=== PATIENT | female | born 1985 | race Caucasian/White ===

== ENCOUNTER 2016-12-08 17:21 | Emergency (ER) | payer SELFPAY ==
[~2016-12-08] VITALS: Ht 170.2 cm; Wt 96.0 kg
[~2016-12-08 17:21] MED LIST: ALBUAER2 INH; CHOL100010 PO; CYAN500T13 PO; TRAZ150T64 PO
[2016-12-08 17:24] VITALS: BP 152/92; PULSE 72; TEMP 36.3; O2SAT 98; Ht 170.2 cm; Wt 96.0 kg
--- NOTE | 2016-12-08 17:49 | DIAGNOSTIC IMAGING REPORT ---
C-SPINE ROUTINE 4 OR 5 VIEWS CLINICAL HISTORY: Neck pain COMPARISON STUDY: 11/28/2014 FINDINGS: There is straightening of the normal cervical lordosis. No fractures or subluxations are visualized. The prevertebral soft tissues are normal. The bony neural foramen are patent bilaterally. IMPRESSION: Straightening of the normal cervical lordosis. Otherwise normal conventional radiographic evaluation of the cervical spine. Electronically signed by: Brendan Fuller M.D. 12/08/2016 5:48 PM Dictated Date/Time: 12/08/2016 5:47 PM
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
[2017-01-15] MEDS ORDERED: EPP3/2 IM (00:41)
[2017-01-15] MEDS ORDERED: PRVHFAIN INH (18:12)
[2017-01-15] MEDS ORDERED: DSY/150 PO (18:12)
== END 2016-12-08 18:13 | disposition home or self-care (01) ==
LOC: C.EDB 17:21 → C.EDD 18:13
DX: S16.1XXA Strain of muscle, fascia and tendon at neck level, initial encounter (principal); F17.200 Nicotine dependence, unspecified, uncomplicated; V43.54XA Car driver injured in collision with van in traffic accident, initial encounter; J45.909 Unspecified asthma, uncomplicated; Z87.01 Personal history of pneumonia (recurrent); Z83.3 Family history of diabetes mellitus; Z84.1 Family history of disorders of kidney and ureter

== ENCOUNTER 2017-01-15 19:28 | Emergency (ER) | payer SELFPAY ==
[~2017-01-15] VITALS: Ht 170.2 cm; Wt 94.2 kg
[~2017-01-15 19:28] MED LIST changes: -ALBUAER2 INH; -CHOL100010 PO; -CYAN500T13 PO; +DSY/150 PO; +EPP3/2 IM; +PRVHFAIN INH; -TRAZ150T64 PO
[2017-01-15 19:36] VITALS: TEMP 36.4; Ht 170.2 cm; Wt 94.2 kg
[2017-01-15] MEDS ORDERED: ONDANSETRON INJ 2 MG/ML 2 ML VIAL IV STA (19:52)
[2017-01-15] MEDS ORDERED: MoRPHine SULFATE 4 MG/ML 1 ML CARP\\VIAL IV STA (19:52)
[2017-01-15] MEDS ORDERED: SODIUM CHLORIDE 0.9% 1000ML 1,000 ML IV STA (19:52)
[2017-01-15] MEDS ORDERED: OPTIRAY 320 IV PRN (20:00)
[2017-01-15 20:04] LABS: URINE APPEARANCE CLEAR (CLEAR); URINE BILIRUBIN NEG (NEG); URINE COLOR YELLOW; URINE NITRITE NEG (NEG); URINE PH 6.5 (4.5-7.5); URINE SPECIFIC GRAVITY 1.014 (1.000-1.030); UROBILINOGEN NEG (NEG); ZZUR CULT IF INDIC CLEAN CATCH NO
[2017-01-15 20:14] LABS: MANUAL MICROSCOPIC REQUIRED? NO; REVIEW REQ? NO
[2017-01-15 20:22] LABS: BASO % 0.8 %; BASO ABS # 0.07 K/uL (0-0.2); COMPLETE YES; EOS % 2.3 %; HEMATOCRIT 44.9 % (37-47); IG% 0.2 %; LYMPH % 30.2 %; LYMPH ABS # 2.73 K/uL (1.2-3.4); MEAN CELL VOLUME 93.9 fL (80-100); MEAN CORPUSCULAR HEMOGLOBIN 32.2 pg (25-34); MEAN CORPUSCULAR HGB CONC 34.3 g/dl (32-36); MEAN PLATELET VOLUME 10.5 fL (7.4-10.4); MONO % 9.2 %; NEUT % 57.3 %; PLATELET COUNT 367 K/uL (130-400); RED BLOOD COUNT 4.78 M/uL (4.2-5.4); WHITE BLOOD COUNT 9.04 K/uL (4.8-10.8)
[2017-01-15] MEDS ORDERED: PROP120C PO (20:29)
[2017-01-15] MEDS ORDERED: METH750T PO (20:39)
[2017-01-15] MEDS ORDERED: TOPI25TA10 PO (20:40)
[2017-01-15 20:44] LABS: BUN/CREATININE RATIO 14.9 (10-20); CALCIUM 9.5 mg/dl (8.5-10.1); CREATININE 0.84 mg/dl (0.60-1.20); POTASSIUM 3.9 mmol/L (3.5-5.1)
[2017-01-15 20:47] LABS: ALB/GLOB RATIO 0.8 (0.9-2)
[2017-01-15] MEDS ORDERED: ZNTT/150 PO (20:59)
--- NOTE | 2017-01-15 21:16 | DIAGNOSTIC IMAGING REPORT ---
ABDOMEN AND PELVIS CT WITH IV CONTRAST CT DOSE: 946.68 mGy.cm HISTORY: Left flank pain left sided abdominal pain TECHNIQUE: Multiaxial CT images of the abdomen and pelvis were performed following the use of intravenous contrast. COMPARISON STUDY: 04/20/2014 FINDINGS: Lung bases are clear. Liver spleen and pancreas are unremarkable. Patient is an interval cholecystectomy. No evidence for an obstructing urinary tract calculus. Bowel pattern is considered nonobstructive throughout. Appendix is unremarkable. Bladder is midline. No free fluid within the pelvic cul-de-sac. IMPRESSION: No significant abnormality identified within the abdomen or pelvis. Prior cholecystectomy. Electronically signed by: Tito Marie M.D. 01/15/2017 9:15 PM Dictated Date/Time: 01/15/2017 9:10 PM
--- NOTE | 2017-01-15 21:32 | EMERGENCY ROOM VISIT NOTE ---
History First contact with patient: 19:37 Chief Complaint: FLANK PAIN Stated Complaint: SEVERE PAIN IN LEFT SIDE History of Present Illness The patient is a 31 year old female who presents to the Emergency Room with complaints of left-sided abdominal pain which began approximately 4 hours ago. The patient states that initially, the pain felt crampy. The pain has worsened and is now a sharp, stabbing pain. She rates the discomfort a 7/10. The pain is worse with movement and with walking. She has had ovarian cysts before, but is unsure if this feels similar are not. She denies any associated urinary symptoms, fevers, vaginal discharge, vomiting, changes in bowel movements, chest pain or shortness of breath. She does report some nausea, but no vomiting. She has not taken any medication at home for her symptoms. Review of Systems A complete 10-point Review of Systems was discussed with the patient, with pertinent positives and negatives listed in the History of Present Illness. All remaining Review of Systems questions can be considered negative unless otherwise specified. Past Medical/Surgical History Medical Problems: (1) Asthma, Unspecified (2) NONSPECIF SKIN ERUPT NEC (3) NONTOX UNINODULAR GOITER (4) Personal History, Pneumonia (Recurrent) (5) Tendon release, left wrist Family History Cancer Diabetes mellitus Gallbladder disease Heart disease Hypertension Kidney disease Kidney stones Lung disease Social History Smoking Status: Current Every Day Smoker Alcohol Use: none Drug Use: none Marital Status: single Housing Status: lives with family Occupation Status: employed Current/Historical Medications Scheduled Propranolol Hcl (Propranolol Hcl Er), 120 MG PO DAILY Ranitidine (Zantac), 150 MG PO BID Topiramate (Topamax), 25 MG PO BID Scheduled PRN Albuterol (Ventolin Hfa), 2 PUFFS INH QID PRN for Asthma Symptoms Epinephrine (Epipen), 0.3 MG IM UD PRN for ALLERGIC REACTION Methocarbamol (Robaxin), 750 MG PO BID PRN for Muscle Spasm Trazodone HCl (Trazodone HCl), 150 MG PO HS PRN for Sleep Allergies Coded Allergies: Cephalosporins (Verified Allergy, Intermediate, HIVES FROM ROCEPHIN IM, ) Ibuprofen (Unverified Allergy, Intermediate, HIVES, 04/01/16) Lidocaine (Verified Allergy, Intermediate, HIVES FROM LIDOCAINE IM, ) Tramadol (Verified Allergy, Intermediate, RASH, 04/01/16) Adhesives (Verified Allergy, Mild, RASH, 04/01/16) Loratadine (Verified Allergy, Mild, 04/01/16) Naproxen (Verified Allergy, Mild, 04/01/16) Propoxyphene (Verified Allergy, Mild, RASH, BUT TAKES DARVON, 04/01/16) Hydrocodone (Verified Allergy, Unknown, ., 04/01/16) Prednisone (Verified Allergy, Unknown, FACIAL SWELLING, 04/01/16) Sulfa Drugs (Verified Allergy, Unknown, ., 04/01/16) Sulfamethoxazole (Verified Allergy, Unknown, ., 04/01/16) Trimethoprim (Verified Allergy, Unknown, ., 04/01/16) Physical Exam Vital Signs Date Time Temp Pulse Resp B/P Pulse Ox O2 Delivery O2 Flow Rate FiO2 01/15/17 21:44 68 18 124/88 98 01/15/17 21:09 61 16 120/71 Room Air 01/15/17 19:36 36.4 70 16 140/86 100 Room Air Physical Exam VITALS: Vitals are noted on the nurse's note and reviewed by myself. Vital signs stable. GENERAL: This is a 31-year-old female, in no acute distress, nondiaphoretic, well-developed well-nourished. SKIN: Capillary reflex less than 2 seconds. HEENT: Normocephalic. PERRLA. EOMI. Nares patent. Mucous membranes moist. Neck is supple without nuchal rigidity. HEART: Regular rate and rhythm without murmurs gallops or rubs. LUNGS: Clear to auscultation bilaterally without wheezes, rales or rhonchi. ABDOMEN: Positive bowel sounds x 4. Soft, with moderate tenderness of the left mid abdomen and left lower quadrant. No guarding or rebound tenderness. NEURO: Patient was alert and oriented to person place and time. Medical Decision & Procedures ER Provider Diagnostic Interpretation: ABDOMEN AND PELVIS CT WITH IV CONTRAST No evidence for an obstructing urinary tract calculus. Bowel pattern is considered nonobstructive throughout. Appendix is unremarkable. Bladder is midline. No free fluid within the pelvic cul-de-sac. IMPRESSION: No significant abnormality identified within the abdomen or pelvis. Prior cholecystectomy. Laboratory Results 01/15/17 20:05 Red Blood Count 4.78, Mean Corpuscular Volume 93.9, Mean Corpuscular Hemoglobin 32.2, Mean Corpuscular Hemoglobin Concent 34.3, Mean Platelet Volume 10.5, Neutrophils (%) (Auto) 57.3, Lymphocytes (%) (Auto) 30.2, Monocytes (%) (Auto) 9.2, Eosinophils (%) (Auto) 2.3, Basophils (%) (Auto) 0.8, Neutrophils # (Auto) 5.18, Lymphocytes # (Auto) 2.73, Monocytes # (Auto) 0.83, Eosinophils # (Auto) 0.21, Basophils # (Auto) 0.07 01/15/17 20:05 Test 01/15/17 19:45 01/15/17 20:05 Urine Color YELLOW Urine Appearance CLEAR (CLEAR) Urine pH 6.5 (4.5-7.5) Urine Specific [place] 1.014 (1.000-1.030) Urine Protein NEG (NEG) Urine Glucose (UA) NEG (NEG) Urine Ketones NEG (NEG) Urine Occult Blood NEG (NEG) Urine Nitrite NEG (NEG) Urine Bilirubin NEG (NEG) Urine Urobilinogen NEG (NEG) Urine Leukocyte Esterase NEG (NEG) Urine Test NEG (NEG) White Blood Count 9.04 K/uL (4.8-10.8) Red Blood Count 4.78 M/uL (4.2-5.4) Hemoglobin 15.4 g/dL (12.0-16.0) Hematocrit 44.9 % (37-47) Mean Corpuscular Volume 93.9 fL (80-100) Mean Corpuscular Hemoglobin 32.2 pg (25-34) Mean Corpuscular Hemoglobin Concent 34.3 g/dl (32-36) Platelet Count 367 K/uL (130-400) Mean Platelet Volume 10.5 fL (7.4-10.4) Neutrophils (%) (Auto) 57.3 % Lymphocytes (%) (Auto) 30.2 % Monocytes (%) (Auto) 9.2 % Eosinophils (%) (Auto) 2.3 % Basophils (%) (Auto) 0.8 % Neutrophils # (Auto) 5.18 K/uL (1.4-6.5) Lymphocytes # (Auto) 2.73 K/uL (1.2-3.4) Monocytes # (Auto) 0.83 K/uL (0.11-0.59) Eosinophils # (Auto) 0.21 K/uL (0-0.5) Basophils # (Auto) 0.07 K/uL (0-0.2) RDW Standard Deviation 44.6 fL (36.4-46.3) RDW Coefficient of Variation 12.9 % (11.5-14.5) Immature Granulocyte % (Auto) 0.2 % Immature Granulocyte # (Auto) 0.02 K/uL (0.00-0.02) Anion Gap 12.0 mmol/L (3-11) Est Creatinine Clear Calc Drug Dose 112.3 ml/min Estimated GFR () 105.8 Estimated GFR (Non- 91.3 BUN/Creatinine Ratio 14.9 (10-20) Calcium Level 9.5 mg/dl (8.5-10.1) Total Bilirubin 0.2 mg/dl (0.2-1) Aspartate Amino Transf (AST/SGOT) 10 U/L (15-37) Alanine Aminotransferase (ALT/SGPT) 17 U/L (12-78) Alkaline Phosphatase 100 U/L (45-117) Total Protein 8.1 gm/dl (6.4-8.2) Albumin 3.6 gm/dl (3.4-5.0) Globulin 4.5 gm/dl (2.5-4.0) Albumin/Globulin Ratio 0.8 (0.9-2) Lipase 166 U/L (73-393) Medications Administered Medications (Trade) Dose Ordered Sig/Kimmie Route Start Time Stop Time Status Last Admin Dose Admin Sodium Chloride (Nss 1000ml) 1,000 ml @ 999 mls/hr Q1H1M STAT IV 01/15/17 19:52 01/15/17 20:52 DC 01/15/17 20:08 999 MLS/HR Morphine Sulfate (MoRPHine SULFATE INJ) 4 mg NOW STAT IV 01/15/17 19:52 01/15/17 19:56 DC 01/15/17 20:08 4 MG Ondansetron HCl (Zofran Inj) 4 mg NOW STAT IV 01/15/17 19:52 01/15/17 19:57 DC 01/15/17 20:08 4 MG Medical Decision Differential diagnosis includes diverticulitis, cystitis, pyelonephritis, gastroenteritis, colitis, renal calculus, ovarian cyst, ovarian torsion, among others. The patient was evaluated as above. Labs were drawn and IV access was obtained. Imaging studies were performed and read by radiology as above. The patient was medicated with 1 L normal saline solution, 4 mg morphine IV and 4 mg Zofran IV. The patient was reassessed multiple times during their stay in the emergency department and remained in stable condition. The patient is a 31-year-old female who presents today complaining of left- sided abdominal pain. Labs revealed no leukocytosis, anemia or concerning electrolyte abnormalities. Urinalysis was not suggestive of infection. Urine was negative. CT of the abdomen and pelvis with IV contrast was performed and showed no acute findings within the abdomen. The patient felt better after IV fluids and pain medication. The etiology of the pain is unknown. The patient was instructed to follow-up closely with her primary care provider and return here for any worsening of her current condition or new/ concerning symptoms. Based on the patient's presentation, lab results, and imaging studies, I feel the patient is stable for outpatient treatment. The patient's case was reviewed with Dr. Jacobsen, ED attending physician, who agreed with my assessment and treatment plan. Discharge instructions were reviewed with the patient. The patient verbalized understanding of my assessment and treatment plan and was discharged home in good condition. Impression Primary Impression: Left lower quadrant pain Departure Information Dispostion Home / Self-Care Condition GOOD Referrals Adalgisa Ortiz M.D. (PCP) Patient Instructions My [facility] Additional Instructions You have been treated in the Emergency Department for your Abdominal Pain. Laboratory results and imaging studies have ruled out any emergent causes for your abdominal pain which would warrant admission or surgery. You state Prilosec, 20 mg daily. This is an zvat-plj-[id number] medication and may help with any stomach issues. For pain control, you can use the following [id number]-[id number] medicines (if >12 yo): - Regular strength (325mg/tab) Tylenol (acetaminophen) 2 tabs every 4-6 hours as needed. Do not exceed 12 tablets in a 24 hour period. Avoid taking more than 4 grams (4000 mg) of Tylenol per day. This includes any other sources of acetaminophen you may take on a regular basis. - Regular strength (200 mg/tab) Advil (ibuprofen) 1-2 tabs every 4-6 hours as needed. Do not exceed a dose of 3200 mg per day. Drink plenty of water and stay well hydrated. As with any trip to the Emergency Department, you should follow-up with your Primary Care Provider from today's visit. Return to the emergency department if your symptoms persist despite treatment plan outlined above or if the following symptoms occur: fevers, chills, worsening nausea/vomiting, blood in your stool or urine.
[2017-01-15 21:44] VITALS: BP 124/88; PULSE 68; O2SAT 98
== END 2017-01-15 21:46 | disposition home or self-care (01) ==
LOC: C.EDB 19:29 → C.EDA 21:46
DX: R10.32 Left lower quadrant pain (principal); J45.909 Unspecified asthma, uncomplicated; F17.200 Nicotine dependence, unspecified, uncomplicated

== ENCOUNTER 2017-02-19 19:36 | Emergency (ER) | payer SELFPAY ==
[~2017-02-19] VITALS: Ht 170.2 cm; Wt 95.7 kg
[~2017-02-19 19:36] MED LIST changes: +METH750T PO; +PROP120C PO; +TOPI25TA10 PO; +ZNTT/150 PO
[2017-02-19 19:48] VITALS: BP 177/114; TEMP 36.8; Ht 170.2 cm; Wt 95.7 kg
[2017-02-19] MEDS ORDERED: ACETAMINOPHEN 500 MG TAB PO STA (20:05)
[2017-02-19] MEDS ORDERED: TOPI50TA16 PO (20:34)
--- NOTE | 2017-02-19 20:38 | DIAGNOSTIC IMAGING REPORT ---
LEFT HAND 3 VIEWS HISTORY: Left ring finger pain. COMPARISON: None. FINDINGS: There is no fracture or dislocation. Soft tissues are unremarkable. No radiopaque foreign bodies. IMPRESSION: No fractures. Electronically signed by: Alexys Doty M.D. 02/19/2017 8:36 PM Dictated Date/Time: 02/19/2017 8:32 PM
[2017-02-19 21:44] VITALS: PULSE 72; O2SAT 99
--- NOTE | 2017-02-20 01:52 | EMERGENCY ROOM VISIT NOTE ---
ED Visit Note First contact with patient: 19:59 Chief Complaint: Left ring finger pain. History of Present Illness: Ms. Rao is a 31-year-old white female who ambulates into the ED accompanied by female friend complaining of left ring finger pain in the area of the PIP joint and proximal phalanx. Patient reports shortly before coming to the ED she was re-straining her to personal dogs because they were fighting. She reports when she had 1 dog by the collar. Tried to attack the other dog and twisted her left index finger. Since that time she reports she has been having severe pain. Currently she describes her pain as a sharp sensation. It is located over the PIP and proximal phalanx. Her pain worsens with flexion at the PIP joint and palpation. She has not identified any alleviating factors related to the pain. She rates her discomfort 8/10. She has not had any medications for pain prior to arrival at the hospital. Associated with her pain she reports a tingling sensation throughout the distal finger. She also denies any previous significant injuries or surgeries to this area. Review of Systems: As noted above in history of present illness. Past Medical History: Asthma, bronchitis, status post cholecystectomy and unspecified wrist surgery. Current Medications: EpiPen, Zantac, Robaxin, propranolol, albuterol, trazodone , Topamax. Allergies to Medications: Cephalosporins, hydrocodone, ibuprofen, lidocaine, naproxen, prednisone, loratadine, Bactrim, tramadol. Social History: Patient is currently employed; she feels safe in her home environment; she admits to tobacco use but denies alcohol use. Physical Examination: Vital Signs: Date Time Temp Pulse Resp B/P Pulse Ox O2 Delivery O2 Flow Rate FiO2 02/19/17 21:44 72 18 99 Room Air 02/19/17 19:48 36.8 74 18 177/114 99 Room Air GENERAL: 31-year-old female in moderate distress due to pain, nontoxic-appearing , afebrile and hemodynamically stable. NEUROLOGICAL: Awake, alert and oriented to person, place and time. Answering questions appropriately and following commands. SKIN: Warm, dry and pink. No soft tissue trauma noted. LEFT HAND: No gross bony deformity. Moderate tenderness over the proximal phalanx in the PIP joint of the ring finger without bony deformity, bony crepitus, swelling or ecchymosis. No tenderness over the MCP, middle phalanx, DIP and distal phalanx. She refused to do range of motion exercises at the MCP and PIP joint area because of pain. Throughout the finger the skin was warm and pink and capillary refill is brisk. She was able to distinguish light sensations through all dermatomes. Should be noted after x-ray I forced her finger at the PIP joint into flexion and she was able to extend the joint with good strength. ED Course: Patient is assessed as noted above. Patient was given 1 g of Tylenol and ice for pain and comfort. Left Hand X-Rays: Were read by myself and the radiologist showing no acute fractures or dislocations. Patient was placed in an metal finger splint. Patient was educated about tonight's findings and instructed on her treatment plan; she verbalized understanding and agreement with this plan. Clinical Impression: Left ring finger pain. Decision-Making: Initially my differential diagnosis I considered dislocation, fracture, tendon strain, contusion and other causes. Disposition: Patient discharged home in stable condition accompanied by female friends; prior to departure she was reassessed and subjectively reported that she was pain-free. Plan: Comfort measures were discussed with the patient including the use of Tylenol, ice and splint use. Patient was encouraged to follow-up with orthopedics if no better in 7-10 days. Patient was encouraged return the ED for worsening pain, uncontrolled swelling, worsening tingling sensations/numbness sensations or any new/concerning symptoms.
== END 2017-02-19 21:45 | disposition home or self-care (01) ==
LOC: C.EDB 19:36 → C.EDD 21:45
DX: M79.645 Pain in left finger(s) (principal); W23.0XXA Caught, crushed, jammed, or pinched between moving objects, initial encounter; Y92.019 Unspecified place in single-family (private) house as the place of occurrence of the external cause; J45.909 Unspecified asthma, uncomplicated; Z79.899 Other long term (current) drug therapy; Z72.0 Tobacco use

== ENCOUNTER 2017-05-27 20:12 | Emergency (ER) | payer SELFPAY ==
[~2017-05-27] VITALS: Ht 170.2 cm; Wt 94.6 kg
[~2017-05-27 20:12] MED LIST changes: -TOPI25TA10 PO; +TOPI50TA16 PO
[2017-05-27 20:23] VITALS: TEMP 36.9; Ht 170.2 cm; Wt 94.6 kg
[2017-05-27] MEDS ORDERED: MoRPHine SULFATE 4 MG/ML 1 ML CARP\\VIAL IV STA (20:37)
[2017-05-27] MEDS ORDERED: ONDANSETRON INJ 2 MG/ML 2 ML VIAL IV STA (20:37)
[2017-05-27 21:11] LABS: BASO % 0.7 %; BASO ABS # 0.07 K/uL (0-0.2); COMPLETE YES; EOS % 2.4 %; HEMATOCRIT 43.8 % (37-47); IG% 0.2 %; LYMPH % 34.4 %; LYMPH ABS # 3.59 K/uL (1.2-3.4); MEAN CELL VOLUME 94.6 fL (80-100); MEAN CORPUSCULAR HEMOGLOBIN 31.5 pg (25-34); MEAN CORPUSCULAR HGB CONC 33.3 g/dl (32-36); NEUT % 51.3 %; PLATELET COUNT 392 K/uL (130-400); RED BLOOD COUNT 4.63 M/uL (4.2-5.4); WHITE BLOOD COUNT 10.44 K/uL (4.8-10.8)
[2017-05-27 21:16] LABS: URINE APPEARANCE CLEAR (CLEAR); URINE BILIRUBIN NEG (NEG); URINE COLOR YELLOW; URINE NITRITE NEG (NEG); URINE SPECIFIC GRAVITY 1.014 (1.000-1.030); UROBILINOGEN NEG (NEG)
[2017-05-27 21:29] LABS: ALT/SGPT 21 U/L (12-78); BLOOD UREA NITROGEN 9 mg/dl (7-18); BUN/CREATININE RATIO 9.4 (10-20); CALCIUM 9.9 mg/dl (8.5-10.1); CARBON DIOXIDE 25 mmol/L (21-32); CHLORIDE 108 mmol/L (98-107); GLUCOSE 66 mg/dl (70-99); POTASSIUM 3.3 mmol/L (3.5-5.1); SODIUM 141 mmol/L (136-145)
[2017-05-27 21:32] LABS: ALKALINE PHOSPHATASE 101 U/L (45-117); AST/SGOT 7 U/L (15-37); MANUAL MICROSCOPIC REQUIRED? NO; REVIEW REQ? NO
[2017-05-27] MEDS ORDERED: TOPI25TA99 PO (21:38)
[2017-05-27] MEDS ORDERED: MAGN400T6 PO (21:40)
[2017-05-27] MEDS ORDERED: [UNRECOGNIZED DRUG - REMARK] PO (21:42)
--- NOTE | 2017-05-27 21:45 | DIAGNOSTIC IMAGING REPORT ---
KUB CLINICAL HISTORY: Abdominal pain. Evaluate for kidney stone. COMPARISON STUDY: CT of the abdomen and pelvis January 15, 2017. FINDINGS: A bone island within the right iliac bone is incidentally noted. Bowel gas pattern is normal. There are cholecystectomy clips. No urinary calculi are identified. Incidental note is made of calcified granulomas within the spleen. IMPRESSION: 1. No urinary calculi identified. 2. No bowel obstruction. Electronically signed by: Carlos Francois M.D. 05/27/2017 9:43 PM Dictated Date/Time: 05/27/2017 9:42 PM
[2017-05-27 21:55] VITALS: BP 106/66; PULSE 56; O2SAT 99
--- NOTE | 2017-05-27 22:03 | EMERGENCY ROOM VISIT NOTE ---
History Report prepared by Jose Angel: Porfirio Morejon Under the Supervision of: Dr. Denzel Rivas M.D. First contact with patient: 20:31 Chief Complaint: FLANK PAIN Stated Complaint: PAIN AROUND KIDNEYS History of Present Illness The patient is a 31 year old female who presents to the Emergency Room with complaints of constant, stabbing, bilateral flank pain beginning a couple days ago. The patient states that she gets nauseous with the pain. The pain started on the left side and migrated to the right earlier today. She denies vomiting, diarrhea, and leg pain. The patient states that she was here in January, and her symptoms are not the same. She reports that there is no chance she is , and her last menstrual period was two weeks ago. Source of History: patient Onset: couple days ago Position: other (Bilateral flank) Quality: stabbing Timing: constant Associated Symptoms: + nausea, + back pain, No vomiting, No diarrhea Note: Denies: leg pain Review of Systems See HPI for pertinent positives & negatives. A total of 10 systems reviewed and were otherwise negative. Past Medical & Surgical Medical Problems: (1) Asthma, Unspecified (2) NONSPECIF SKIN ERUPT NEC (3) NONTOX UNINODULAR GOITER (4) Personal History, Pneumonia (Recurrent) (5) Tendon release, left wrist Family History Cancer Diabetes mellitus Gallbladder disease Heart disease Hypertension Kidney disease Kidney stones Lung disease Social History Smoking Status: Current Every Day Smoker Alcohol Use: none Drug Use: none Marital Status: single Housing Status: lives with family Occupation Status: employed Current/Historical Medications Scheduled Magnesium Oxide (Mag-Ox), 400 MG PO DAILY Propranolol Hcl (Propranolol Hcl Er), 120 MG PO DAILY Ranitidine (Zantac), 150 MG PO BID Topiramate (Topamax), 50 MG PO QPM Topiramate (Topamax ), 25 MG PO QAM [12 Hour Allergy], 1 TAB PO Q12 Scheduled PRN Albuterol (Ventolin Hfa), 2 PUFFS INH QID PRN for Asthma Symptoms Epinephrine (Epipen), 0.3 MG IM UD PRN for ALLERGIC REACTION Methocarbamol (Robaxin), 750 MG PO BID PRN for Muscle Spasm Trazodone HCl (Trazodone HCl), 150 MG PO HS PRN for Sleep Allergies Coded Allergies: Cephalosporins (Verified Allergy, Intermediate, HIVES FROM ROCEPHIN IM, 09/27) Ibuprofen (Unverified Allergy, Intermediate, HIVES, 02/19/17) Lidocaine (Verified Allergy, Intermediate, HIVES FROM LIDOCAINE IM, ) Tramadol (Verified Allergy, Intermediate, RASH, 02/19/17) Adhesives (Verified Allergy, Mild, RASH, 02/19/17) Loratadine (Verified Allergy, Mild, 02/19/17) Naproxen (Verified Allergy, Mild, 02/19/17) Propoxyphene (Verified Allergy, Mild, RASH, BUT TAKES DARVON, 02/19/17) Hydrocodone (Verified Allergy, Unknown, ., 02/19/17) Prednisone (Verified Allergy, Unknown, FACIAL SWELLING, 02/19/17) Sulfa Drugs (Verified Allergy, Unknown, ., 02/19/17) Sulfamethoxazole (Verified Allergy, Unknown, ., 02/19/17) Trimethoprim (Verified Allergy, Unknown, ., 02/19/17) Physical Exam Vital Signs Date Time Temp Pulse Resp B/P (MAP) Pulse Ox O2 Delivery O2 Flow Rate FiO2 05/27/17 21:55 56 18 106/66 99 Room Air 05/27/17 20:23 36.9 60 18 133/84 98 Room Air Physical Exam Constitutional: Vital signs reviewed. Eyes: Pupils are equal round reactive to light. Conjunctiva are noninjected. ENT: Pharynx is clear without erythema or exudate. Mucous membranes are moist. Neck supple without meningeal signs. Respiratory: Clear to auscultation bilaterally. Breath sounds are equal bilaterally. Cardiovascular: Regular rate and rhythm. No rubs or gallops. GI: Soft, nondistended and nontender. Bowel sounds are present. Musculoskeletal: No peripheral edema. Mild left CVA tenderness, no tenderness to the midline lumbar spine. Integumentary: No cyanosis. Neurological: The patient is awake and alert. No focal deficits. Motor and sensation intact in the lower extremities. Psychiatric: Normal affect. Medical Decision & Procedures ER Provider Diagnostic Interpretation: X-ray results as stated below per interpretation by me and the radiologist: BENITEZ CLINICAL HISTORY: Abdominal pain. Evaluate for kidney stone. COMPARISON STUDY: CT of the abdomen and pelvis January 15, 2017. FINDINGS: A bone island within the right iliac bone is incidentally noted. Bowel gas pattern is normal. There are cholecystectomy clips. No urinary calculi are identified. Incidental note is made of calcified granulomas within the spleen. IMPRESSION: 1. No urinary calculi identified. 2. No bowel obstruction. Electronically signed by: Carlos Francois M.D. 05/27/2017 9:43 PM Dictated Date/Time: 05/27/2017 9:42 PM Laboratory Results 05/27/17 20:37 Red Blood Count 4.63, Mean Corpuscular Volume 94.6, Mean Corpuscular Hemoglobin 31.5, Mean Corpuscular Hemoglobin Concent 33.3, Mean Platelet Volume 10.0, Neutrophils (%) (Auto) 51.3, Lymphocytes (%) (Auto) 34.4, Monocytes (%) (Auto) 11.0, Eosinophils (%) (Auto) 2.4, Basophils (%) (Auto) 0.7, Neutrophils # (Auto ) 5.36, Lymphocytes # (Auto) 3.59, Monocytes # (Auto) 1.15, Eosinophils # (Auto ) 0.25, Basophils # (Auto) 0.07 05/27/17 20:37 Test 05/27/17 20:37 White Blood Count 10.44 K/uL (4.8-10.8) Red Blood Count 4.63 M/uL (4.2-5.4) Hemoglobin 14.6 g/dL (12.0-16.0) Hematocrit 43.8 % (37-47) Mean Corpuscular Volume 94.6 fL (80-100) Mean Corpuscular Hemoglobin 31.5 pg (25-34) Mean Corpuscular Hemoglobin Concent 33.3 g/dl (32-36) Platelet Count 392 K/uL (130-400) Mean Platelet Volume 10.0 fL (7.4-10.4) Neutrophils (%) (Auto) 51.3 % Lymphocytes (%) (Auto) 34.4 % Monocytes (%) (Auto) 11.0 % Eosinophils (%) (Auto) 2.4 % Basophils (%) (Auto) 0.7 % Neutrophils # (Auto) 5.36 K/uL (1.4-6.5) Lymphocytes # (Auto) 3.59 K/uL (1.2-3.4) Monocytes # (Auto) 1.15 K/uL (0.11-0.59) Eosinophils # (Auto) 0.25 K/uL (0-0.5) Basophils # (Auto) 0.07 K/uL (0-0.2) RDW Standard Deviation 46.0 fL (36.4-46.3) RDW Coefficient of Variation 13.1 % (11.5-14.5) Immature Granulocyte % (Auto) 0.2 % Immature Granulocyte # (Auto) 0.02 K/uL (0.00-0.02) Urine Color YELLOW Urine Appearance CLEAR (CLEAR) Urine pH 6.0 (4.5-7.5) Urine Specific [place] 1.014 (1.000-1.030) Urine Protein NEG (NEG) Urine Glucose (UA) NEG (NEG) Urine Ketones NEG (NEG) Urine Occult Blood NEG (NEG) Urine Nitrite NEG (NEG) Urine Bilirubin NEG (NEG) Urine Urobilinogen NEG (NEG) Urine Leukocyte Esterase NEG (NEG) Urine Test NEG (NEG) Anion Gap 8.0 mmol/L (3-11) Est Creatinine Clear Calc Drug Dose 94.5 ml/min Estimated GFR () 85.7 Estimated GFR (Non- 74.0 BUN/Creatinine Ratio 9.4 (10-20) Calcium Level 9.9 mg/dl (8.5-10.1) Total Bilirubin 0.3 mg/dl (0.2-1) Direct Bilirubin < 0.1 mg/dl (0-0.2) Aspartate Amino Transf (AST/SGOT) 7 U/L (15-37) Alanine Aminotransferase (ALT/SGPT) 21 U/L (12-78) Alkaline Phosphatase 101 U/L (45-117) Total Protein 8.1 gm/dl (6.4-8.2) Albumin 3.8 gm/dl (3.4-5.0) Lipase 152 U/L (73-393) Laboratory results as reviewed by me. Medications Administered Medications (Trade) Dose Ordered Sig/Kimmie Route Start Time Stop Time Status Last Admin Dose Admin Morphine Sulfate (MoRPHine SULFATE INJ) 4 mg ONE STAT IV 05/27/17 20:37 05/27/17 20:38 DC 05/27/17 20:44 4 MG Ondansetron HCl (Zofran Inj) 4 mg NOW STAT IV 05/27/17 20:37 05/27/17 20:38 DC 05/27/17 20:44 4 MG ED Course 2034: The patient was evaluated in room C05. A complete history and physical exam was performed. 2036: Ordered Zofran Inj 4 mg IV, Morphine Sulfate 4 mg IV 2139: Upon reevaluation, the patient appeared to have improvement of her symptoms. I discussed tonight's findings with her. She verbalized agreement of the treatment plan. She was discharged home. Medical Decision This is a 31-year-old female who presents with bilateral flank pain. Differential diagnosis includes strain, lumbar disc disease, kidney stones, UTI , pyelonephritis, pancreatitis. I did perform a limited focused review of portions of the patient's old chart on the electronic medical record. The patient was seen in January for flank pain and had a remarkable CT scan of the abdomen and pelvis. Medication Reconciliation: I attest that I have personally reviewed the patient' s current medication list. Blood Pressure Screening: Patient was found to have a slightly elevated blood pressure due to circumstances. I do not believe that the patient requires hypertension monitoring. I did evaluate the patient as noted above. IV access was established. I did treat patient with IV morphine and Zofran. I did order and personally review the patient's urinalysis as described above. I did order and review the patient 's blood work as noted in the electronic medical record. Her white blood cell count is not elevated. I did order a KUB x-ray. I did review the images myself as well as the radiology report as described above. I did discuss the test results with the patient. Workup here was unremarkable. The cause of her flank pain is unclear. She was advised follow closely with her doctor for further evaluation and treatment. She was discharged in good condition. Impression Primary Impression: Bilateral flank pain Scribe Attestation The scribe's documentation has been prepared under my direct and personally reviewed by me in its entirety. I confirm that the note above accurately reflects all work, treatment, procedures, and medical decision making performed by me. Departure Information Dispostion Home / Self-Care Referrals Adalgisa Ortiz M.D. Forms HOME CARE DOCUMENTATION FORM, IMPORTANT VISIT INFORMATION Patient Instructions ED Flank Pain Uncertain Cause, My [facility] Additional Instructions You have been examined and treated today on an emergency basis only. This is not a substitute for, or an effort to provide, complete comprehensive medical care. It is impossible to recognize and treat all injuries or illnesses in a single emergency department visit. It is therefore important that you follow up closely with your physician. Call as soon as possible for an appointment. Return for worsening symptoms or if you develop fever, vomiting, or any other concerning symptoms.
== END 2017-05-27 21:56 | disposition home or self-care (01) ==
LOC: C.EDB 20:13 → C.EDC 21:56
DX: R10.9 Unspecified abdominal pain (principal); J45.909 Unspecified asthma, uncomplicated; E04.1 Nontoxic single thyroid nodule; Z87.01 Personal history of pneumonia (recurrent); Z80.9 Family history of malignant neoplasm, unspecified; Z83.3 Family history of diabetes mellitus; Z83.79 Family history of other diseases of the digestive system; Z82.49 Family history of ischemic heart disease and other diseases of the circulatory system; Z84.1 Family history of disorders of kidney and ureter; Z83.6 Family history of other diseases of the respiratory system; F17.210 Nicotine dependence, cigarettes, uncomplicated; Z79.899 Other long term (current) drug therapy

== ENCOUNTER 2017-06-18 20:25 | Emergency (ER) | payer SELFPAY ==
[~2017-06-18] VITALS: Ht 170.2 cm; Wt 86.4 kg
[~2017-06-18 20:25] MED LIST changes: +MAGN400T6 PO; +TOPI25TA99 PO; +[UNRECOGNIZED DRUG - REMARK] PO
[2017-06-18 20:30] VITALS: TEMP 36.5; Ht 170.2 cm; Wt 86.4 kg
--- NOTE | 2017-06-18 20:37 | EMERGENCY ROOM VISIT NOTE ---
History First contact with patient: 20:33 Chief Complaint: FLANK PAIN Stated Complaint: RIGHT SIDE PAIN History of Present Illness The patient is a 31 year old female who presents to the Emergency Room with complaints of RLQ pain since Saturday. Pain was intermittent at first, but now more constant. Described as stabbing, 8/ 10 in intensity. Staying still makes the pain better. Any type of movement makes the pain worse. No relief achieved with change in position. Patient has not tried any analgesia. She has nausea, but no vomiting. No fevers, chills, or sweats. No UTI sx. Last BM earlier today, she has chronic diarrhea. She denies feeling bloated, still passing gas. No excessive burping. She also has chronic back pain. No leg swelling. No CP, SOB (h/o asthma). No changes in meds or recent trauma or travel. No history of confirmed kidney stones - last month, she had an episode of similar pain, and was told that a stone was probably passed. Denies chance of . Did have cholecystectomy 2013 Review of Systems See HPI for pertinent positives and negatives. A total of ten systems were reviewed and were otherwise negative. Past Medical/Surgical History Medical Problems: (1) Asthma, Unspecified (2) NONSPECIF SKIN ERUPT NEC (3) NONTOX UNINODULAR GOITER (4) Personal History, Pneumonia (Recurrent) (5) Tendon release, left wrist Family History Cancer Diabetes mellitus Gallbladder disease Heart disease Hypertension Kidney disease Kidney stones Lung disease Social History Smoking Status: Current Every Day Smoker Alcohol Use: none Drug Use: none Marital Status: single Housing Status: lives with family Occupation Status: employed Current/Historical Medications Scheduled Magnesium Oxide (Mag-Ox), 400 MG PO DAILY Propranolol Hcl (Propranolol Hcl Er), 120 MG PO DAILY Ranitidine (Zantac), 150 MG PO BID Topiramate (Topamax), 50 MG PO QPM Topiramate (Topamax ), 25 MG PO QAM [12 Hour Allergy], 1 TAB PO Q12 Scheduled PRN Albuterol (Ventolin Hfa), 2 PUFFS INH QID PRN for Asthma Symptoms Epinephrine (Epipen), 0.3 MG IM UD PRN for ALLERGIC REACTION Methocarbamol (Robaxin), 750 MG PO BID PRN for Muscle Spasm Trazodone HCl (Trazodone HCl), 150 MG PO HS PRN for Sleep Physical Exam Vital Signs Date Time Temp Pulse Resp B/P (MAP) Pulse Ox O2 Delivery O2 Flow Rate FiO2 06/18/17 22:54 57 20 112/68 98 06/18/17 22:15 54 20 128/78 98 Room Air 06/18/17 21:49 54 20 96/59 97 Room Air 06/18/17 20:30 36.5 66 18 137/87 100 Room Air Physical Exam GENERAL: alert, well appearing, well nourished, sitting in bed, no acute distress, non-toxic HEAD: Normocephalic, atraumatic. No sinus tenderness. EYES: PERRL, EOMI, normal sclera and conjunctiva OROPHARYNX: No exudate, no erythema. Lips, buccal mucosa, and tongue normal and mucous membranes are dry NECK: Supple, no nuchal rigidity, no adenopathy, non-tender LUNGS: Clear to auscultation. Normal chest wall mechanics, good air entry. No crepitations, crackles, or wheezes HEART: RRR, S1 and S2 normal, no murmurs appreciated CHEST: No reproducible tenderness. ABDOMEN: Soft, slight tenderness to palpation of RLQ with mild pain extending laterally, normo-active bowel sounds, no masses, no rebound or guarding. BACK: Back is symmetrical on inspection, no deformities, no midline tenderness, no CVA tenderness. SKIN: Warm, pink, dry. No erythema, rashes, or bruising. EXTREMITIES: Grossly normal. Moving all 4 limbs, strength 5/5. No pitting edema. Calves non tender. NEURO: Alert, Ox3. No focal deficits. Normal sensorium, cranial nerves II-XII grossly intact, normal speech. PSYCH: Mood and affect appropriate. Medical Decision & Procedures ER Provider Diagnostic Interpretation: ABD/PELVIS NO IV OR ORAL CONT HISTORY: 31 years-old Female acute right lower quadrant abdominal pain COMPARISON: CT abdomen and pelvis 01/15/2017 TECHNIQUE: Multiple axial CT images of the abdomen and pelvis were obtained without the use of contrast. A dose lowering technique was used consistent with the principals of YANIRA. FINDINGS: There is minimal subsegmental dependent atelectasis. No pneumoperitoneum identified. Imaged inferior cardiac chambers are unremarkable. Prior cholecystectomy. Scattered calcifications throughout the spleen are consistent with prior hematogenous granulomatous disease. The liver, pancreas and adrenal glands appear normal. Bilateral kidneys, ureters, urinary bladder, uterus and adnexa are unremarkable. The abdominal aorta is normal in course and caliber. No bulky adenopathy. There is no bowel obstruction. Scattered noninflamed sigmoid diverticula are present. The appendix is not definitively seen, however there is no secondary evidence of acute appendicitis. High attenuating material layering within the dependent cecum is again seen, also noted on comparison study. A small appendicolith could have a similar appearance. Soft tissues are within normal limits. Bone islands of the sacrum and pelvis are noted. IMPRESSION: 1. No acute intra-abdominal or intrapelvic abnormality identified. No evidence of acute appendicitis. 2. Prior cholecystectomy. Laboratory Results 06/18/17 20:40 Red Blood Count 4.51, Mean Corpuscular Volume 95.6, Mean Corpuscular Hemoglobin 31.7, Mean Corpuscular Hemoglobin Concent 33.2, Mean Platelet Volume 10.3, Neutrophils (%) (Auto) 50.5, Lymphocytes (%) (Auto) 36.1, Monocytes (%) (Auto) 10.5, Eosinophils (%) (Auto) 2.1, Basophils (%) (Auto) 0.7, Neutrophils # (Auto ) 4.55, Lymphocytes # (Auto) 3.25, Monocytes # (Auto) 0.95, Eosinophils # (Auto ) 0.19, Basophils # (Auto) 0.06 06/18/17 20:40 Test 06/18/17 20:40 06/18/17 21:09 White Blood Count 9.01 K/uL (4.8-10.8) Red Blood Count 4.51 M/uL (4.2-5.4) Hemoglobin 14.3 g/dL (12.0-16.0) Hematocrit 43.1 % (37-47) Mean Corpuscular Volume 95.6 fL (80-100) Mean Corpuscular Hemoglobin 31.7 pg (25-34) Mean Corpuscular Hemoglobin Concent 33.2 g/dl (32-36) Platelet Count 399 K/uL (130-400) Mean Platelet Volume 10.3 fL (7.4-10.4) Neutrophils (%) (Auto) 50.5 % Lymphocytes (%) (Auto) 36.1 % Monocytes (%) (Auto) 10.5 % Eosinophils (%) (Auto) 2.1 % Basophils (%) (Auto) 0.7 % Neutrophils # (Auto) 4.55 K/uL (1.4-6.5) Lymphocytes # (Auto) 3.25 K/uL (1.2-3.4) Monocytes # (Auto) 0.95 K/uL (0.11-0.59) Eosinophils # (Auto) 0.19 K/uL (0-0.5) Basophils # (Auto) 0.06 K/uL (0-0.2) RDW Standard Deviation 45.7 fL (36.4-46.3) RDW Coefficient of Variation 13.1 % (11.5-14.5) Immature Granulocyte % (Auto) 0.1 % Immature Granulocyte # (Auto) 0.01 K/uL (0.00-0.02) Anion Gap 5.0 mmol/L (3-11) Est Creatinine Clear Calc Drug Dose 90.4 ml/min Estimated GFR () 85.7 Estimated GFR (Non- 74.0 BUN/Creatinine Ratio 8.1 (10-20) Calcium Level 9.3 mg/dl (8.5-10.1) Total Bilirubin 0.3 mg/dl (0.2-1) Aspartate Amino Transf (AST/SGOT) 10 U/L (15-37) Alanine Aminotransferase (ALT/SGPT) 26 U/L (12-78) Alkaline Phosphatase 92 U/L (45-117) Total Protein 7.8 gm/dl (6.4-8.2) Albumin 3.6 gm/dl (3.4-5.0) Globulin 4.2 gm/dl (2.5-4.0) Albumin/Globulin Ratio 0.9 (0.9-2) Human Chorionic Gonadotropin, Qual NEG (NEG) Urine Color YELLOW Urine Appearance CLEAR (CLEAR) Urine pH 7.0 (4.5-7.5) Urine Specific [place] 1.011 (1.000-1.030) Urine Protein NEG (NEG) Urine Glucose (UA) NEG (NEG) Urine Ketones NEG (NEG) Urine Occult Blood NEG (NEG) Urine Nitrite NEG (NEG) Urine Bilirubin NEG (NEG) Urine Urobilinogen NEG (NEG) Urine Leukocyte Esterase NEG (NEG) Urine Test NEG (NEG) Medications Administered Medications (Trade) Dose Ordered Sig/Kimmie Route Start Time Stop Time Status Last Admin Dose Admin Ondansetron HCl (Zofran Inj) 4 mg NOW STAT IV 06/18/17 21:32 06/18/17 21:34 DC 06/18/17 21:47 4 MG Morphine Sulfate (MoRPHine SULFATE INJ) 4 mg NOW STAT IV 06/18/17 21:32 06/18/17 21:34 DC 06/18/17 21:48 4 MG Ondansetron HCl (Zofran Inj) 4 mg NOW STAT IV 06/18/17 22:20 06/18/17 22:21 DC 06/18/17 22:35 4 MG ED Course 2036: Past medical records reviewed. The patient was evaluated in room B12, and a complete history and physical examination were performed. 2101: Labs and imaging were ordered 2132: Ordered Morphine Sulfate Inj 4 mg IV, Zofran Inj 4 mg IV. 2154: Patient feeling better on re-evaluation. Updated patient regarding labs. Symptoms of pain and nausea diminished 2214: Patient re-evaluated, and continues to feel well. Some nausea returning. Ordered Zofran Inj 4 mg IV. Updated her on results and treatment plan with her. She was in agreement of the treatment plan. Medical Decision Prior records/ancillary studies reviewed. Triage Nursing notes reviewed. Additional history obtained from patient. The patient's history was concerning for abdominal pain. Differential diagnosis: Etiologies such as appendicitis, diverticulitis, PUD, biliary pathology, UTI, pancreatitis, obstruction, mesenteric ischemia, aortic pathology, infections, inflammatory bowel disease, renal colic, as well as others were entertained. Physical examination findings: As above. ER treatment provided: IV morphine and IV Zofran On reassessment the patient felt better. Diagnostics interpreted by me: The labs revealed CBC, BMP, LFT, and UA all within normal limits. Urine screen negative. Imaging studies: CT/AP negative for acute intra-abdominal or intrapelvic abnormality identified. No evidence of acute appendicitis. Consultation: By the evaluation outlined above emergent etiologies such as appendicitis, diverticulitis, PUD, biliary pathology, UTI, pancreatitis, obstruction, mesenteric ischemia, aortic pathology, infections, inflammatory bowel disease, renal colic, as well as others were deemed relatively unlikely. The patient informed about the findings as listed above. All questions were answered and she was pleased with the treatment. Return instructions were outlined and the patient was discharged in stable condition. Outpatient prescription management: Nil Referral: The patient was referred back to their primary care physician for follow-up in 2 to 3 days for a recheck of the current condition. Impression Primary Impression: Abdominal pain Departure Information Dispostion Home / Self-Care Condition GOOD Referrals Adalgisa Ortiz M.D. (PCP) Patient Instructions My [facility] Resident Tracking Resident Involvement: Resident Care Provided Care Provided: Adult ED
[2017-06-18 21:14] LABS: BASO % 0.7 %; BASO ABS # 0.06 K/uL (0-0.2); COMPLETE YES; EOS % 2.1 %; HEMATOCRIT 43.1 % (37-47); IG% 0.1 %; LYMPH % 36.1 %; LYMPH ABS # 3.25 K/uL (1.2-3.4); MEAN CELL VOLUME 95.6 fL (80-100); MEAN CORPUSCULAR HEMOGLOBIN 31.7 pg (25-34); MEAN CORPUSCULAR HGB CONC 33.2 g/dl (32-36); MEAN PLATELET VOLUME 10.3 fL (7.4-10.4); MONO % 10.5 %; NEUT % 50.5 %; PLATELET COUNT 399 K/uL (130-400); RED BLOOD COUNT 4.51 M/uL (4.2-5.4); WHITE BLOOD COUNT 9.01 K/uL (4.8-10.8)
[2017-06-18 21:16] LABS: PREG INTERNAL NEGATIVE QC NEG CLEAR BACKGROUND; PREG INTERNAL POSITIVE QC POS CONTROL LINE
--- NOTE | 2017-06-18 21:17 | EMERGENCY ROOM VISIT NOTE ---
History Report prepared by Jose Angel: Cal Sotelo Under the Supervision of: Dr. Eddie Buchanan M.D. First contact with patient: 20:33 Chief Complaint: FLANK PAIN Stated Complaint: RIGHT SIDE PAIN History of Present Illness The patient is a 31 year old female who presents to the Emergency Room with complaints of worsening right lower quadrant abdominal pain that started 4 days ago. She says that the pain originally started as an intermittent pain, which has progressed to a constant sharp pain that she rates as an 8 out of 10 in severity. She says that the pain does not radiate anywhere. She adds that staying still relieves the pain, and every movement worsens the pain. The patient denies any fevers, urinary symptoms, chills, rashes, or sweating. She has not taken any medications for the pain. She notes that she has chronic diarrhea, but she has had a decreased bowel movement frequency recently. The patient states that she has been nauseated for 3 days, and has not been eating much the past few days. She says that she has a history of diverticulitis but this current pain is nothing like it. The patient denies any chance of . She says that she has a history of cysts, but she has not had one in about 15 years. The patient still has her appendix. Source of History: patient Onset: 4 days ago Position: abdomen (RLQ) Symptom Intensity: 8/10 Quality: sharp Timing: worsening Modifying Factors (Worsening): movement Modifying Factors (Relieving): rest Associated Symptoms: + nausea, No fevers, No chills, No diaphoresis, No urinary symptoms, No rash Note: Associated symptoms: Decreased appetite. Review of Systems See HPI for pertinent positives & negatives. A total of 10 systems reviewed and were otherwise negative. Past Medical & Surgical Medical Problems: (1) Asthma, Unspecified (2) NONSPECIF SKIN ERUPT NEC (3) NONTOX UNINODULAR GOITER (4) Personal History, Pneumonia (Recurrent) (5) Tendon release, left wrist Old medical records were reviewed. Nurse's notes were reviewed and I agree with. Family History Cancer Diabetes mellitus Gallbladder disease Heart disease Hypertension Kidney disease Kidney stones Lung disease Social History Smoking Status: Current Every Day Smoker Alcohol Use: none Drug Use: none Marital Status: single Housing Status: lives with family Occupation Status: employed Current/Historical Medications Scheduled Magnesium Oxide (Mag-Ox), 400 MG PO DAILY Propranolol Hcl (Propranolol Hcl Er), 120 MG PO DAILY Ranitidine (Zantac), 150 MG PO BID Topiramate (Topamax), 50 MG PO QPM Topiramate (Topamax ), 25 MG PO QAM [12 Hour Allergy], 1 TAB PO Q12 Scheduled PRN Albuterol (Ventolin Hfa), 2 PUFFS INH QID PRN for Asthma Symptoms Epinephrine (Epipen), 0.3 MG IM UD PRN for ALLERGIC REACTION Methocarbamol (Robaxin), 750 MG PO BID PRN for Muscle Spasm Trazodone HCl (Trazodone HCl), 150 MG PO HS PRN for Sleep Allergies Coded Allergies: Cephalosporins (Verified Allergy, Intermediate, HIVES FROM ROCEPHIN IM, 06/18/17) Ibuprofen (Verified Allergy, Intermediate, HIVES, 06/18/17) Lidocaine (Verified Allergy, Intermediate, HIVES FROM LIDOCAINE IM, 06/18/17 ) Tramadol (Verified Allergy, Intermediate, RASH, 06/18/17) Adhesives (Verified Allergy, Mild, RASH, 06/18/17) Loratadine (Verified Allergy, Mild, 06/18/17) Naproxen (Verified Allergy, Mild, 06/18/17) Propoxyphene (Verified Allergy, Mild, RASH, BUT TAKES DARVON, 06/18/17) Hydrocodone (Verified Allergy, Unknown, ., 06/18/17) Prednisone (Verified Allergy, Unknown, FACIAL SWELLING, 06/18/17) Sulfa Drugs (Verified Allergy, Unknown, ., 06/18/17) Sulfamethoxazole (Verified Allergy, Unknown, ., 06/18/17) Trimethoprim (Verified Allergy, Unknown, ., 06/18/17) Physical Exam Vital Signs Date Time Temp Pulse Resp B/P (MAP) Pulse Ox O2 Delivery O2 Flow Rate FiO2 06/18/17 22:54 57 20 112/68 98 06/18/17 22:15 54 20 128/78 98 Room Air 06/18/17 21:49 54 20 96/59 97 Room Air 06/18/17 20:30 36.5 66 18 137/87 100 Room Air Physical Exam General: Well developed well nourished non ill appearing young female in no acute distress, breathing comfortably on room air. Normal speech HEENT: Normal cephalic atraumatic. Pupils are equal round and reactive to light. Extraocular movements are intact. Oropharynx is pink with moist mucous membranes. No swelling of the mouth lips or tongue. Neck: Supple with a midline trachea. No meningeal signs or stiffness, no JVD or bruits. No Stridor. Chest: Clear to auscultation bilaterally. No wheezes or rhonchi. No increased work of breathing. Heart: regular rate and rhythm. Abdomen: Mildly tender to palpation in right lower quadrant. Soft nondistended without rebound guarding or rigidity. Extremities: No cyanosis clubbing or edema. No calf tenderness or assymetry Spine/Back. Non tender to palpation. No CVA tenderness Skin: Good turgor without rashes. Neurologic exam: Cranial nerves two through 12 are intact. Motor and sensation are intact and symmetrical throughout. Medical Decision & Procedures ER Provider Diagnostic Interpretation: CT results as stated below per my review and radiologist interpretation: ABD/PELVIS NO IV OR ORAL CONT HISTORY: 31 years-old Female acute right lower quadrant abdominal pain COMPARISON: CT abdomen and pelvis 01/15/2017 TECHNIQUE: Multiple axial CT images of the abdomen and pelvis were obtained without the use of contrast. A dose lowering technique was used consistent with the principals of ALARA. FINDINGS: There is minimal subsegmental dependent atelectasis. No pneumoperitoneum identified. Imaged inferior cardiac chambers are unremarkable. Prior cholecystectomy. Scattered calcifications throughout the spleen are consistent with prior hematogenous granulomatous disease. The liver, pancreas and adrenal glands appear normal. Bilateral kidneys, ureters, urinary bladder, uterus and adnexa are unremarkable. The abdominal aorta is normal in course and caliber. No bulky adenopathy. There is no bowel obstruction. Scattered noninflamed sigmoid diverticula are present. The appendix is not definitively seen, however there is no secondary evidence of acute appendicitis. High attenuating material layering within the dependent cecum is again seen, also noted on comparison study. A small appendicolith could have a similar appearance. Soft tissues are within normal limits. Bone islands of the sacrum and pelvis are noted. IMPRESSION: 1. No acute intra-abdominal or intrapelvic abnormality identified. No evidence of acute appendicitis. 2. Prior cholecystectomy. The above report was generated using voice recognition software. It may contain grammatical, syntax or spelling errors. Electronically signed by: Carlos Hernández M.D. 06/18/2017 9:57 PM Dictated Date/Time: 06/18/2017 9:51 PM Laboratory Results 06/18/17 20:40 Red Blood Count 4.51, Mean Corpuscular Volume 95.6, Mean Corpuscular Hemoglobin 31.7, Mean Corpuscular Hemoglobin Concent 33.2, Mean Platelet Volume 10.3, Neutrophils (%) (Auto) 50.5, Lymphocytes (%) (Auto) 36.1, Monocytes (%) (Auto) 10.5, Eosinophils (%) (Auto) 2.1, Basophils (%) (Auto) 0.7, Neutrophils # (Auto ) 4.55, Lymphocytes # (Auto) 3.25, Monocytes # (Auto) 0.95, Eosinophils # (Auto ) 0.19, Basophils # (Auto) 0.06 06/18/17 20:40 Test 06/18/17 20:40 06/18/17 21:09 White Blood Count 9.01 K/uL (4.8-10.8) Red Blood Count 4.51 M/uL (4.2-5.4) Hemoglobin 14.3 g/dL (12.0-16.0) Hematocrit 43.1 % (37-47) Mean Corpuscular Volume 95.6 fL (80-100) Mean Corpuscular Hemoglobin 31.7 pg (25-34) Mean Corpuscular Hemoglobin Concent 33.2 g/dl (32-36) Platelet Count 399 K/uL (130-400) Mean Platelet Volume 10.3 fL (7.4-10.4) Neutrophils (%) (Auto) 50.5 % Lymphocytes (%) (Auto) 36.1 % Monocytes (%) (Auto) 10.5 % Eosinophils (%) (Auto) 2.1 % Basophils (%) (Auto) 0.7 % Neutrophils # (Auto) 4.55 K/uL (1.4-6.5) Lymphocytes # (Auto) 3.25 K/uL (1.2-3.4) Monocytes # (Auto) 0.95 K/uL (0.11-0.59) Eosinophils # (Auto) 0.19 K/uL (0-0.5) Basophils # (Auto) 0.06 K/uL (0-0.2) RDW Standard Deviation 45.7 fL (36.4-46.3) RDW Coefficient of Variation 13.1 % (11.5-14.5) Immature Granulocyte % (Auto) 0.1 % Immature Granulocyte # (Auto) 0.01 K/uL (0.00-0.02) Anion Gap 5.0 mmol/L (3-11) Est Creatinine Clear Calc Drug Dose 90.4 ml/min Estimated GFR () 85.7 Estimated GFR (Non- 74.0 BUN/Creatinine Ratio 8.1 (10-20) Calcium Level 9.3 mg/dl (8.5-10.1) Total Bilirubin 0.3 mg/dl (0.2-1) Aspartate Amino Transf (AST/SGOT) 10 U/L (15-37) Alanine Aminotransferase (ALT/SGPT) 26 U/L (12-78) Alkaline Phosphatase 92 U/L (45-117) Total Protein 7.8 gm/dl (6.4-8.2) Albumin 3.6 gm/dl (3.4-5.0) Globulin 4.2 gm/dl (2.5-4.0) Albumin/Globulin Ratio 0.9 (0.9-2) Human Chorionic Gonadotropin, Qual NEG (NEG) Urine Color YELLOW Urine Appearance CLEAR (CLEAR) Urine pH 7.0 (4.5-7.5) Urine Specific Rawlings 1.011 (1.000-1.030) Urine Protein NEG (NEG) Urine Glucose (UA) NEG (NEG) Urine Ketones NEG (NEG) Urine Occult Blood NEG (NEG) Urine Nitrite NEG (NEG) Urine Bilirubin NEG (NEG) Urine Urobilinogen NEG (NEG) Urine Leukocyte Esterase NEG (NEG) Urine Test NEG (NEG) Laboratory studies as stated above per my review. Medications Administered Medications (Trade) Dose Ordered Sig/Kimmie Route Start Time Stop Time Status Last Admin Dose Admin Ondansetron HCl (Zofran Inj) 4 mg NOW STAT IV 06/18/17 21:32 06/18/17 21:34 DC 06/18/17 21:47 4 MG Morphine Sulfate (MoRPHine SULFATE INJ) 4 mg NOW STAT IV 06/18/17 21:32 06/18/17 21:34 DC 06/18/17 21:48 4 MG Ondansetron HCl (Zofran Inj) 4 mg NOW STAT IV 06/18/17 22:20 8/8/17 22:21 DC 06/18/17 22:35 4 MG ED Course 2109: Past medical records reviewed. The patient was evaluated in room B12B, and a complete history and physical examination were performed. 2131: Ordered Morphine Sulfate Inj 4 mg IV, Zofran Inj 4 mg IV. 2241: Upon reevaluation, the patient is resting. I discussed the results and treatment plan with her. She verbalized agreement of the treatment plan. The patient was discharged home. Medical Decision Differentials include, but are not limited to; appendicitis, ovarian cyst, , ectopic , UTI, electrolyte or metabolic abnormality. This patient comes in as described above. She was placed in room B12 . she's having right lower abdominal pain .she is mildly tender on exam. She's had no trauma. IV access established and she did receive IV morphine and IV Zofran the pain felt better. She did receive additional IV Zofran for nausea. She has no white count or fever to suggest infection. She is not , her urinalysis does not suggest UTI. She's no acute electrolyte or metabolic abnormalities. CAT scan was unremarkable. She's had no evidence of appendicitis. She feels better would like to go home. This may be musculoskeletal or gynecologic. There is no evidence suggest infection or surgical process. She will be discharged home. She will return if: worsening of symptoms, fever or chills, any new problems or concerns. Medication Reconcilliation Current Medication List: was personally reviewed by me Blood Pressure Screening Patient's blood pressure: Normal blood pressure Impression Primary Impression: RLQ abdominal pain Scribe Attestation The scribe's documentation has been prepared under my direction and personally reviewed by me in its entirety. I confirm that the note above accurately reflects all work, treatment, procedures, and medical decision making performed by me. Departure Information Dispostion Home / Self-Care Referrals Adalgisa Ortiz M.D. (PCP) Patient Instructions My [facility] Additional Instructions You have been seen in the ER for abdominal pain. Labs and imaging were reassuring as they were negative for appendicitis, abscess, or other emergent findings. For pain control, you can use the following [id number] medicines: - Regular strength (325mg/tab) Tylenol (acetaminophen) 2 tabs every 4-6 hours as needed. Do not exceed 12 tablets in a 24 hour period. Avoid taking more than 4 grams (4000 mg) of Tylenol per day. This includes any other sources of acetaminophen you may take on a regular basis. - Regular strength (200 mg/tab) Advil (ibuprofen) 1-2 tabs every 4-6 hours as needed. Do not exceed a dose of 3200 mg per day. You have been examined and treated today on an emergency basis only. This is not a substitute for, or an effort to provide, complete comprehensive medical care. It is impossible to recognize and treat all injuries or illnesses in a single emergency department visit. It is therefore important that you make a follow up with your physician for close monitoring. Return to the ER immediately for worsening or persistent dizziness, vomiting, headache, fevers, chest pains, difficulty breathing, black or bloody stools, slurred speech, numbness, weakness, visual changes, worsening of your condition , or as needed.
[2017-06-18 21:24] LABS: BUN/CREATININE RATIO 8.1 (10-20); CALCIUM 9.3 mg/dl (8.5-10.1); POTASSIUM 4.1 mmol/L (3.5-5.1)
[2017-06-18 21:27] LABS: ALB/GLOB RATIO 0.9 (0.9-2)
[2017-06-18 21:31] LABS: URINE APPEARANCE CLEAR (CLEAR); URINE BILIRUBIN NEG (NEG); URINE COLOR YELLOW; URINE NITRITE NEG (NEG); URINE SPECIFIC GRAVITY 1.011 (1.000-1.030); UROBILINOGEN NEG (NEG); ZZUR CULT IF INDIC CLEAN CATCH NO
[2017-06-18] MEDS ORDERED: MoRPHine SULFATE 4 MG/ML 1 ML CARP\\VIAL IV STA (21:32)
[2017-06-18] MEDS ORDERED: ONDANSETRON INJ 2 MG/ML 2 ML VIAL IV STA ×2 (21:32→22:20)
[2017-06-18 21:36] LABS: MANUAL MICROSCOPIC REQUIRED? NO; REVIEW REQ? NO
--- NOTE | 2017-06-18 21:58 | DIAGNOSTIC IMAGING REPORT ---
ABD/PELVIS NO IV OR ORAL CONT HISTORY: 31 years-old Female acute right lower quadrant abdominal pain COMPARISON: CT abdomen and pelvis 01/15/2017 TECHNIQUE: Multiple axial CT images of the abdomen and pelvis were obtained without the use of contrast. A dose lowering technique was used consistent with the principals of YANIRA. FINDINGS: There is minimal subsegmental dependent atelectasis. No pneumoperitoneum identified. Imaged inferior cardiac chambers are unremarkable. Prior cholecystectomy. Scattered calcifications throughout the spleen are consistent with prior hematogenous granulomatous disease. The liver, pancreas and adrenal glands appear normal. Bilateral kidneys, ureters, urinary bladder, uterus and adnexa are unremarkable. The abdominal aorta is normal in course and caliber. No bulky adenopathy. There is no bowel obstruction. Scattered noninflamed sigmoid diverticula are present. The appendix is not definitively seen, however there is no secondary evidence of acute appendicitis. High attenuating material layering within the dependent cecum is again seen, also noted on comparison study. A small appendicolith could have a similar appearance. Soft tissues are within normal limits. Bone islands of the sacrum and pelvis are noted. IMPRESSION: 1. No acute intra-abdominal or intrapelvic abnormality identified. No evidence of acute appendicitis. 2. Prior cholecystectomy. The above report was generated using voice recognition software. It may contain grammatical, syntax or spelling errors. Electronically signed by: Carlos Hernández M.D. 06/18/2017 9:57 PM Dictated Date/Time: 06/18/2017 9:51 PM
[2017-06-18 22:54] VITALS: BP 112/68; PULSE 57; O2SAT 98
== END 2017-06-18 22:55 | disposition home or self-care (01) ==
LOC: C.EDB 20:28
DX: R10.31 Right lower quadrant pain (principal); Z83.79 Family history of other diseases of the digestive system; F17.210 Nicotine dependence, cigarettes, uncomplicated

== ENCOUNTER 2017-08-03 17:19 | Emergency (ER) | payer SELFPAY ==
[~2017-08-03] VITALS: Ht 170.2 cm; Wt 93.3 kg
[2017-08-03 17:21] VITALS: TEMP 36.5; Ht 170.2 cm; Wt 93.3 kg
[2017-08-03] MEDS ORDERED: ALBUT/IPRATROP 3MG/0.5MG NEB 3 ML VIAL INH STA (17:34)
--- NOTE | 2017-08-03 18:43 | DIAGNOSTIC IMAGING REPORT ---
CHEST 2 VIEWS ROUTINE HISTORY: cough COMPARISON: Chest 08/24/2014. FINDINGS: Cholecystectomy. The heart is normal in size. No pleural effusions. No pneumothorax. Small patchy density within the lingula. Right lung is clear. IMPRESSION: Small patchy density within the lingula. This could represent atelectasis or a pneumonia. Electronically signed by: Alexys Doty M.D. 08/03/2017 6:42 PM Dictated Date/Time: 08/03/2017 6:40 PM
[2017-08-03] MEDS ORDERED: BENZ1CAP90 PO (18:58)
[2017-08-03] MEDS ORDERED: AZITTAB PO (18:58)
[2017-08-03] MEDS ORDERED: VNTHFA/IN INH (18:58)
--- NOTE | 2017-08-03 19:02 | EMERGENCY ROOM VISIT NOTE ---
ED Visit Note First contact with patient: 17:26 CHIEF COMPLAINT: Cough HISTORY OF PRESENT ILLNESS: This 31-year-old female patient presents to the emergency department in ambulatory, with her mother, complaining of coughing associated with a stuffy nose for a few days. The patient states today, her ribs and chest began hurting all over and around to her back. The patient has been taking Robitussin for her symptoms with minimal to no relief. Patient does report a subjective fever, but denies chills, nausea, vomiting, sore throat. She states her cough has been nonproductive. The patient does report runny and stuffy nose as well as a headache. She denies any recent ill contacts. She denies any recent travel. The patient does report a history of asthma. She has not been coughing up blood. The patient has taken nothing for her pain in her chest. REVIEW OF SYSTEMS: A 10 system review of systems was performed with positives and pertinent negatives listed in the history of present illness. All other systems were reviewed and are negative. ALLERGIES: Please see list. They did personally review the patient's medications and allergies with her at bedside. MEDICATIONS: See list. I did personally review the patient's medications and allergies with her at bedside. PMH: Tumors, asthma SOCIAL HISTORY: Patient lives locally with family. She does admit to smoking approximately one quarter pack per day. The patient denies drug or alcohol use. PHYSICAL EXAM: VITALS: Vitals are noted on the nurse's note and reviewed by myself. Vital signs stable. GENERAL: This is a 31-year-old female, in no acute distress, nondiaphoretic, well-developed well-nourished. SKIN: The skin was without rashes, erythema, edema, or bruising. There is no tenting of the skin. Capillary reflex less than 2 seconds. HEAD: Normocephalic atraumatic. EARS: External auditory canals clear, tympanic membranes pearly figueroa without erythema or effusion bilaterally. EYES: Pupils equal round and reactive to light and accommodation. Conjunctivae without injection, sclerae without icterus. Extraocular movements intact. NOSE: Patent, turbinates without inflammation or erythema. Rhinorrhea present. No sinus tenderness. MOUTH: Mucous membranes moist. Tonsils are not enlarged. Pharynx without erythema or exudate. Uvula midline. Airway patent. Tongue does not deviate. NECK: Supple without nuchal rigidity. No lymphadenopathy. No thyromegaly. Cervical spine is nontender. No JVD. HEART: Regular rate and rhythm without murmurs gallops or rubs. LUNGS: Wheezing noted throughout. Wheezing did improve after DuoNeb treatment. Auscultation was without rales or rhonchi bilaterally. No dullness to percussion. No retractions or accessory muscle use. MUSCULOSKELETAL: No muscle atrophy, erythema, or edema noted. Full range of motion without joint tenderness in all extremities. No tenderness to palpation. Normal gait. Strength 5/5 throughout. NEURO: Patient was alert and oriented to person place and time. Normal sensation to light and sharp touch. Deep tendon reflexes 2+ throughout. No focal neurological deficits. RADIOLOGY: CHEST 2 VIEWS ROUTINE HISTORY: cough COMPARISON: Chest 08/24/2014. FINDINGS: Cholecystectomy. The heart is normal in size. No pleural effusions. No pneumothorax. Small patchy density within the lingula. Right lung is clear. IMPRESSION: Small patchy density within the lingula. This could represent atelectasis or a pneumonia. EMERGENCY DEPARTMENT COURSE: The patient was seen and evaluated as above. She was given a DuoNeb treatment for her symptoms. The patient did report mild improvement in her symptoms. Based on the patient's history, symptoms, presentation, and history of asthma, I do feel that treating the patchy density in the lungs as if it were pneumonia is appropriate at this time. Discharge instructions were reviewed and the patient was discharged home in good condition. DIFFERENTIAL DIAGNOSIS: Acute bronchitis, asthma exacerbation, pneumonia, malignancy, upper respiratory infection, tracheobronchitis, and others DIAGNOSIS: Pneumonia DISCHARGE INSTRUCTIONS & TREATMENT: You were seen and evaluated in the emergency department today for a cough/ wheezing. CXR did look suspicious for LLL pneumonia. You were prescribed Azithromycin (Z-pack) to be taken as directed. This is an antibiotic. All antibiotics have the potential to cause diarrhea. Stop this medication and contact a medical provider if you were to develop any significant adverse side effects including: wheezing, shortness of breath, passing out, vomiting, or a diffuse rash. Always take antibiotics as directed and COMPLETE the ENTIRE course regardless of the improvement of your symptoms. You may take benzonatate as directed for coughing. Please use albuterol inhaler, 2 puffs every 4-6 hours for wheezing and coughing. As discussed, you should take OTC Mucinex and/or Sudafed for your symptoms. Please do not exceed the recommended daily dosages. Ibuprofen(Motrin, Advil) may be used for fever or pain. Use 600mg every six hours as needed. Take with food. Avoid using more than 2400mg in a 24 hour period. Do not use 2400mg per day for more than three consecutive days without physician direction. Prolonged inappropriate use can lead to stomach upset or ulcers. You may take Naproxen 1-2 tablets twice daily in place of ibuprofen. This medication will help with the swelling in your sinuses. (AND/OR) Acetaminophen(Tylenol) may be used for fever or pain. Use 1000mg every six hours as needed. Avoid using more than 3000mg in a 24 hour period. For congestion, you may use Flonase OTC. You may want to consider zinc, echinacea, and vitamin C to help boost your immunity. Please get plenty of rest and drink plenty of fluids. Please return or follow-up with your PCP in 2-3 days. Return to the emergency department for coughing up blood, difficulty breathing, chest pain, worsening symptoms, or for other concerns. Problem List Medical Problems: (1) Asthma, Unspecified Status: Chronic (2) NONSPECIF SKIN ERUPT NEC Status: Resolved (3) NONTOX UNINODULAR GOITER Status: Chronic (4) Personal History, Pneumonia (Recurrent) Status: Resolved (5) Tendon release, left wrist Status: Resolved Current/Historical Medications Scheduled Azithromycin (Zithromax Z-Blayne), 0 PO UD Magnesium Oxide (Mag-Ox), 400 MG PO DAILY Propranolol Hcl (Propranolol Hcl Er), 120 MG PO DAILY Ranitidine (Zantac), 150 MG PO BID Topiramate (Topamax), 50 MG PO QPM Topiramate (Topamax ), 25 MG PO QAM Scheduled PRN Albuterol Hfa (Ventolin Hfa), 2 PUFFS INH QID PRN for Wheezing Benzonatate (Tessalon Perles), 200 MG PO TID PRN for Cough Epinephrine (Epipen), 0.3 MG IM UD PRN for ALLERGIC REACTION Methocarbamol (Robaxin), 750 MG PO BID PRN for Muscle Spasm Allergies Coded Allergies: Cephalosporins (Verified Allergy, Intermediate, HIVES FROM ROCEPHIN IM, 06/18/17) Ibuprofen (Verified Allergy, Intermediate, HIVES, 06/18/17) Lidocaine (Verified Allergy, Intermediate, HIVES FROM LIDOCAINE IM, 06/18/17 ) Tramadol (Verified Allergy, Intermediate, RASH, 06/18/17) Adhesives (Verified Allergy, Mild, RASH, 06/18/17) Loratadine (Verified Allergy, Mild, 06/18/17) Naproxen (Verified Allergy, Mild, 06/18/17) Propoxyphene (Verified Allergy, Mild, RASH, BUT TAKES DARVON, 06/18/17) Hydrocodone (Verified Allergy, Unknown, ., 06/18/17) Prednisone (Verified Allergy, Unknown, FACIAL SWELLING, 06/18/17) Sulfa Drugs (Verified Allergy, Unknown, ., 06/18/17) Sulfamethoxazole (Verified Allergy, Unknown, ., 06/18/17) Trimethoprim (Verified Allergy, Unknown, ., 06/18/17) Vital Signs Date Time Temp Pulse Resp B/P (MAP) Pulse Ox O2 Delivery O2 Flow Rate FiO2 08/03/17 19:32 63 18 129/96 98 08/03/17 18:48 57 18 127/86 97 Room Air 08/03/17 17:35 98 Room Air 08/03/17 17:21 36.5 76 17 134/85 99 Room Air Medications Administered Medications (Trade) Dose Ordered Sig/Kimmie Route Start Time Stop Time Status Last Admin Dose Admin Albuterol/ Ipratropium (Duoneb) 3 ml NOW STAT INH 08/03/17 17:34 08/03/17 17:36 DC 08/03/17 17:34 3 ML Departure Information Impression Primary Impression: Pneumonia Dispostion Home / Self-Care Condition GOOD Prescriptions Benzonatate (Tessalon Perles) 200 Mg Cap 200 MG PO TID Y for Cough for 10 Days, #30 CAP Prov: Amanda Roe PA-C 08/03/17 Azithromycin (ZITHROMAX Z-BLAYNE) 250 Mg Tab 0 PO UD, #1 PKT 2 TABS DAY 1, THEN 1 TAB DAILY FOR 4 DAYS Prov: Amanda Roe PA-C 08/03/17 Albuterol Hfa (VENTOLIN HFA) 200 Puffs/81582 Mcg Aers 2 PUFFS INH QID Y for Wheezing, #1 INHALER Prov: Amanda Roe PA-C 08/03/17 Referrals No Doctor, Assigned (PCP) Patient Instructions ED Pneumonia Adult, My [facility] Additional Instructions You were seen and evaluated in the emergency department today for a cough/ wheezing. CXR did look suspicious for LLL pneumonia. You were prescribed Azithromycin (Z-pack) to be taken as directed. This is an antibiotic. All antibiotics have the potential to cause diarrhea. Stop this medication and contact a medical provider if you were to develop any significant adverse side effects including: wheezing, shortness of breath, passing out, vomiting, or a diffuse rash. Always take antibiotics as directed and COMPLETE the ENTIRE course regardless of the improvement of your symptoms. You may take benzonatate as directed for coughing. Please use albuterol inhaler, 2 puffs every 4-6 hours for wheezing and coughing. As discussed, you should take OTC Mucinex and/or Sudafed for your symptoms. Please do not exceed the recommended daily dosages. Ibuprofen(Motrin, Advil) may be used for fever or pain. Use 600mg every six hours as needed. Take with food. Avoid using more than 2400mg in a 24 hour period. Do not use 2400mg per day for more than three consecutive days without physician direction. Prolonged inappropriate use can lead to stomach upset or ulcers. You may take Naproxen 1-2 tablets twice daily in place of ibuprofen. This medication will help with the swelling in your sinuses. (AND/OR) Acetaminophen(Tylenol) may be used for fever or pain. Use 1000mg every six hours as needed. Avoid using more than 3000mg in a 24 hour period. For congestion, you may use Flonase OTC. You may want to consider zinc, echinacea, and vitamin C to help boost your immunity. Please get plenty of rest and drink plenty of fluids. Please return or follow-up with your PCP in 2-3 days. Return to the emergency department for coughing up blood, difficulty breathing, chest pain, worsening symptoms, or for other concerns. Problem Qualifiers Primary Impression: Pneumonia Pneumonia type: due to unspecified organism Laterality: left Lung location : lower lobe of lung Qualified Codes: J18.1 - Lobar pneumonia, unspecified organism
[2017-08-03 19:32] VITALS: BP 129/96; PULSE 63; O2SAT 98
== END 2017-08-03 19:21 | disposition home or self-care (01) ==
LOC: C.EDB 17:20 → C.EDC 19:21
DX: J18.9 Pneumonia, unspecified organism (principal); J45.909 Unspecified asthma, uncomplicated; E04.9 Nontoxic goiter, unspecified; F17.200 Nicotine dependence, unspecified, uncomplicated; Z87.01 Personal history of pneumonia (recurrent); Z79.899 Other long term (current) drug therapy; Z88.2 Allergy status to sulfonamides; Z88.6 Allergy status to analgesic agent; Z88.8 Allergy status to other drugs, medicaments and biological substances; Z91.09 Other allergy status, other than to drugs and biological substances

== ENCOUNTER 2017-11-02 13:21 | Emergency (ER) | payer SELFPAY ==
[~2017-11-02] VITALS: Ht 170.2 cm; Wt 95.4 kg
[~2017-11-02 13:21] MED LIST changes: -DSY/150 PO; -PRVHFAIN INH; +VNTHFA/IN INH; -[UNRECOGNIZED DRUG - REMARK] PO
[2017-11-02 13:30] VITALS: TEMP 36.9; Ht 170.2 cm; Wt 95.4 kg
[2017-11-02] MEDS ORDERED: ACETAMINOPHEN 325 MG TAB PO STA (13:42)
--- NOTE | 2017-11-02 13:46 | EMERGENCY ROOM VISIT NOTE ---
History First contact with patient: 13:34 Chief Complaint: SORETHROAT Stated Complaint: SORE THROAT INTO EARS History of Present Illness The patient is a 32 year old female who presents to the Emergency Room via private vehicle with complaints of "sore throat/neck into her ears". The patient states that she began with pain in the right anterior neck and is now bilateral and extends to the right ear. She notes it is not midline and rather it is over the lymph nodes bilaterally in the anterior neck. 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 She rates the pain as a 9/10. She' s not had infections in this area previously. She notes no sore throat. She states that when she takes a deep breath in the pain is worse in the anterior neck. Review of Systems A complete 10-point Review of Systems was discussed with the patient, with pertinent positives and negatives listed in the History of Present Illness. All remaining Review of Systems questions can be considered negative unless otherwise specified. Past Medical/Surgical History Medical Problems: (1) Asthma, Unspecified (2) NONSPECIF SKIN ERUPT NEC (3) NONTOX UNINODULAR GOITER (4) Personal History, Pneumonia (Recurrent) (5) Tendon release, left wrist Family History Cancer Diabetes mellitus Gallbladder disease Heart disease Hypertension Kidney disease Kidney stones Lung disease Social History Smoking Status: Current Every Day Smoker Alcohol Use: none Drug Use: none Marital Status: single Housing Status: lives with family Occupation Status: employed Current/Historical Medications Scheduled Azithromycin (Zithromax), 250 MG PO DAILY Magnesium Oxide (Mag-Ox), 400 MG PO DAILY Propranolol Hcl (Propranolol Hcl Er), 120 MG PO DAILY Ranitidine (Zantac), 150 MG PO BID Topiramate (Topamax), 50 MG PO QPM Topiramate (Topamax ), 25 MG PO QAM Scheduled PRN Albuterol Hfa (Ventolin Hfa), 2 PUFFS INH QID PRN for Wheezing Epinephrine (Epipen), 0.3 MG IM UD PRN for ALLERGIC REACTION Methocarbamol (Robaxin), 750 MG PO BID PRN for Muscle Spasm Physical Exam Vital Signs Date Time Temp Pulse Resp B/P (MAP) Pulse Ox O2 Delivery O2 Flow Rate FiO2 11/02/17 16:37 60 18 125/86 98 Room Air 11/02/17 15:30 72 18 131/79 96 Room Air 11/02/17 13:30 36.9 77 18 135/91 99 Room Air Physical Exam VITAL SIGNS - Vital signs and nursing notes were reviewed. Stable. GENERAL -32-year-old female appearing her stated age who is in no acute distress. Communicates well with provider and answers questions appropriately. SKIN - Without rashes. HEAD - NC/AT. EYES - Sclera anicteric. Palpebral conjunctiva pink and moist with no injection noted. EARS - No deformities of external structures noted on gross examination bilaterally. No pain elicited with palpation of the tragus bilaterally. External auditory canals without discharge or otorrhea. Tympanic membranes pearly figueroa without retraction or bulging. No fluid or purulent material visualized behind the TM. Handle of malleus, umbo, cone of light, pars tensa/ flaccid all easily visualized. NOSE - Midline and without cyanosis. No epistaxis or purulent drainage noted. MOUTH/OROPHARYNX - Without perioral cyanosis. Buccal mucosa pink and moist and without leukoplakia. Tongue midline with equal elevation of palate bilaterally. No tonsillar hypertrophy, erythema, or exudates noted. Fair dentition noted. NECK - Neck with FROM. Supple to palpation. Bilateral anterior lymphadenopathy noted. No nuchal rigidity. No evidence of Brendan angina or tenderness some of the tongue or soft tissue under the chin. LUNGS - Chest wall symmetric without accessory muscle use, intercostals retractions, or central cyanosis. Normal vesicular breath sounds CTA B/L. No wheezes, rales, or rhonchi appreciated. CARDIAC - RRR with S1/S2. No murmur, rubs, or gallops appreciated. Medical Decision & Procedures ER Provider Diagnostic Interpretation: CHEST 2 VIEWS ROUTINE HISTORY: Bilateral anterior neck pain COMPARISON: Chest 08/03/2017. FINDINGS: The lungs are clear. Cardiac silhouette is normal in size. No pleural effusions. No pneumothorax. IMPRESSION: No acute process. Electronically signed by: Alexys Doty M.D. 11/02/2017 2:41 PM Dictated Date/Time: 11/02/2017 2:40 PM SOFT TISSUE NECK CLINICAL HISTORY: Bilateral anterior neck pain COMPARISON STUDY: Cervical spine 12/08/2016. FINDINGS: Slight reversal of the normal lordotic curvature, unchanged. Prevertebral soft tissues and the epiglottis are normal in thickness. The contours of the hypopharynx are within normal limits. No soft tissue gas identified. No radiopaque foreign bodies. The trachea is midline and is patent. The lung apices are clear. IMPRESSION: Unremarkable neck radiograph. Electronically signed by: Alexys Doty M.D. 11/02/2017 2:43 PM Dictated Date/Time: 11/02/2017 2:[address] NECK WITH INTRAVENOUS CONTRAST CLINICAL HISTORY: Bilateral anterior neck pain, fevers, markedly tender TECHNIQUE: Multiaxial CT images of the neck performed following the use of intravenous contrast. COMPARISON STUDY: Neck radiograph 11/02/2017. FINDINGS: The visualized brain parenchyma and orbits are unremarkable. Mucosal hyperenhancement within the nasopharynx, oropharynx, and bilateral palatine tonsils. The epiglottis and prevertebral soft tissues are normal in thickness. There is a 1.7 cm heterogeneous nodule within the lower pole of the left thyroid gland. This could be exophytic. The major cervical vessels enhance normally. No loculated fluid collections to suggest an abscess. The parotid and submandibular glands are symmetric. There is shotty bilateral submandibular and upper cervical lymphadenopathy. There is also 1.3 cm nodule within the upper pole the left thyroid lobe. The lung apices are clear. No fractures within the visualized osseous structures. The paranasal sinuses and mastoid air cells are clear. IMPRESSION: 1. Mucosal hyperenhancement within the nasopharynx, oropharynx, and palatine tonsils. This suggests a pharyngitis/tonsillitis. 2. No abscess or mass identified within the neck. 3. Mild upper cervical/submandibular shotty lymphadenopathy. This is likely reactive. 4. Left thyroid nodules as described above. Follow-up nonemergent thyroid ultrasound is recommended for further evaluation. Electronically signed by: Alexys Doty M.D. 11/02/2017 4:14 PM Dictated Date/Time: 11/02/2017 4:07 PM Laboratory Results 11/02/17 15:00 Red Blood Count 4.37, Mean Corpuscular Volume 94.1, Mean Corpuscular Hemoglobin 32.3, Mean Corpuscular Hemoglobin Concent 34.3, Mean Platelet Volume 10.2, Neutrophils (%) (Auto) 58.7, Lymphocytes (%) (Auto) 24.1, Monocytes (%) (Auto) 14.0, Eosinophils (%) (Auto) 2.3, Basophils (%) (Auto) 0.6, Neutrophils # (Auto ) 5.22, Lymphocytes # (Auto) 2.14, Monocytes # (Auto) 1.24, Eosinophils # (Auto ) 0.20, Basophils # (Auto) 0.05 11/02/17 15:00 Test 11/02/17 15:00 White Blood Count 8.88 K/uL (4.8-10.8) Red Blood Count 4.37 M/uL (4.2-5.4) Hemoglobin 14.1 g/dL (12.0-16.0) Hematocrit 41.1 % (37-47) Mean Corpuscular Volume 94.1 fL (80-100) Mean Corpuscular Hemoglobin 32.3 pg (25-34) Mean Corpuscular Hemoglobin Concent 34.3 g/dl (32-36) Platelet Count 302 K/uL (130-400) Mean Platelet Volume 10.2 fL (7.4-10.4) Neutrophils (%) (Auto) 58.7 % Lymphocytes (%) (Auto) 24.1 % Monocytes (%) (Auto) 14.0 % Eosinophils (%) (Auto) 2.3 % Basophils (%) (Auto) 0.6 % Neutrophils # (Auto) 5.22 K/uL (1.4-6.5) Lymphocytes # (Auto) 2.14 K/uL (1.2-3.4) Monocytes # (Auto) 1.24 K/uL (0.11-0.59) Eosinophils # (Auto) 0.20 K/uL (0-0.5) Basophils # (Auto) 0.05 K/uL (0-0.2) RDW Standard Deviation 44.2 fL (36.4-46.3) RDW Coefficient of Variation 12.8 % (11.5-14.5) Immature Granulocyte % (Auto) 0.3 % Immature Granulocyte # (Auto) 0.03 K/uL (0.00-0.02) Anion Gap 6.0 mmol/L (3-11) Est Creatinine Clear Calc Drug Dose 119.0 ml/min Estimated GFR () 113.2 Estimated GFR (Non- 97.7 BUN/Creatinine Ratio 14.2 (10-20) Calcium Level 8.9 mg/dl (8.5-10.1) Total Bilirubin 0.4 mg/dl (0.2-1) Aspartate Amino Transf (AST/SGOT) 6 U/L (15-37) Alanine Aminotransferase (ALT/SGPT) 16 U/L (12-78) Alkaline Phosphatase 85 U/L (45-117) Total Protein 7.6 gm/dl (6.4-8.2) Albumin 3.2 gm/dl (3.4-5.0) Globulin 4.4 gm/dl (2.5-4.0) Albumin/Globulin Ratio 0.7 (0.9-2) Monoscreen NEG (NEG) Medications Administered Medications (Trade) Dose Ordered Sig/Kimmie Route Start Time Stop Time Status Last Admin Dose Admin Acetaminophen (Tylenol Tab) 650 mg NOW STAT PO 11/02/17 13:42 11/02/17 13:43 DC 11/02/17 14:03 650 MG Azithromycin (Zithromax Tab) 500 mg NOW STAT PO 11/02/17 16:45 11/02/17 16:46 DC 11/02/17 16:53 500 MG Medical Decision Patient was seen and evaluated as above. She presents to us today with pain in the anterior neck bilaterally radiating to the right ear. There is white patchy exudate in the pharynx. There is bilateral anterior cervical lymphadenopathy. No fever upon entrance here today. Rapid strep was negative. I favor a viral pharyngitis with pain caused by the cervical anterior lymphadenopathy. There is no evidence of Brendan angina on exam. No evidence of skin infection. Patient was reassessed multiple times and found to be sitting in bed appearing well. She was given Tylenol for pain. Decision was made to obtain a chest as well as neck radiographs to rule out any free air potentially from a pneumomediastinum or any other life-threatening illness. CT was also obtained of the soft tissue in the neck and reveals pharyngitis/ tonsillitis. This was performed secondary to the amount of pain the patient was presenting and. The concern was for potential retropharyngeal abscess. This was negative. She was also informed upon the thyroid nodules as she has noted she followed up for the past. No concerning leukocytosis or anemia. Metabolic panel reveals no evidence of kidney or liver failure. [place] screen negative. She likely has a viral pharyngitis however I will initiate antibiotics secondary to her presentation. She is to follow with her family doctor for this. She was educated upon management, educated upon worrisome symptoms which to return, had questions about discharge, and was discharged home in good condition. She certainly is to follow-up regarding the thyroid as well. In the and evaluation treatment this patient following differential diagnoses were entertained: Viral pharyngitis, streptococcal pharyngitis, mononucleosis, retropharyngeal abscess, among others. Impression Primary Impression: Sore throat Additional Impression: Acute pharyngitis Departure Information Dispostion Home / Self-Care Condition GOOD Prescriptions Azithromycin (ZITHROMAX) 250 Mg Tab 250 MG PO DAILY, #4 TAB Prov: Jose Romeo PA-C 11/02/17 Referrals No Doctor, Assigned (PCP) Patient Instructions My [facility] Additional Instructions You were seen in the emergency department for your sore throat. The results of your rapid strep screen were found to be NEGATIVE. You will be contacted in 48- 72 hrs if the results of your culture are found to be positive and any change in antibiotics is necessary. You were prescribed Azithromycin to be taken daily. You're given the first dose here with a next dose to be taken tomorrow evening. The rest is at her pharmacy for pickup. This is an antibiotic. All antibiotics have the potential to cause diarrhea. Stop this medication and contact a medical provider if you were to develop any significant adverse side effects including: wheezing, shortness of breath, passing out, vomiting, or a diffuse rash. Always take antibiotics as directed and COMPLETE the ENTIRE course regardless of the improvement of your symptoms. For pain and fever control, you can use the following [id number] medicines (if >12 yo): - Regular strength (325mg/tab) Tylenol (acetaminophen) 2 tabs every 4-6 hours as needed. Do not exceed 12 tablets in a 24 hour period. Avoid taking more than 3 grams (3000 mg) of Tylenol per day. This includes any other sources of acetaminophen you may take on a regular basis. - For best results, alternate dosing of Tylenol and Advil. In addition to your prescribed medications, you can also use the following home remedies: - Warm salt-water gargles 3 times per day can soothe your throat and help to fight infection. - Warm tea with honey can soothe your throat. Return to the emergency department if your symptoms persist or worsen over the next 2-3 days despite treatment course outlined above. Return to the emergency department if you develop the following symptoms of: inability to swallow solids , liquids, or drool; excessive wheezing or inability to catch your breath; or intractable fever or pain. Follow up with your primary care provider in 2-3 days from today's emergency department visit. Please follow-up with your family doctor for your thyroid. CT NECK WITH INTRAVENOUS CONTRAST CLINICAL HISTORY: Bilateral anterior neck pain, fevers, markedly tender TECHNIQUE: Multiaxial CT images of the neck performed following the use of intravenous contrast. COMPARISON STUDY: Neck radiograph 11/02/2017. FINDINGS: The visualized brain parenchyma and orbits are unremarkable. Mucosal hyperenhancement within the nasopharynx, oropharynx, and bilateral palatine tonsils. The epiglottis and prevertebral soft tissues are normal in thickness. There is a 1.7 cm heterogeneous nodule within the lower pole of the left thyroid gland. This could be exophytic. The major cervical vessels enhance normally. No loculated fluid collections to suggest an abscess. The parotid and submandibular glands are symmetric. There is shotty bilateral submandibular and upper cervical lymphadenopathy. There is also 1.3 cm nodule within the upper pole the left thyroid lobe. The lung apices are clear. No fractures within the visualized osseous structures. The paranasal sinuses and mastoid air cells are clear. IMPRESSION: 1. Mucosal hyperenhancement within the nasopharynx, oropharynx, and palatine tonsils. This suggests a pharyngitis/tonsillitis. 2. No abscess or mass identified within the neck. 3. Mild upper cervical/submandibular shotty lymphadenopathy. This is likely reactive. 4. Left thyroid nodules as described above. Follow-up nonemergent thyroid ultrasound is recommended for further evaluation. Problem Qualifiers
--- NOTE | 2017-11-02 14:43 | DIAGNOSTIC IMAGING REPORT ---
CHEST 2 VIEWS ROUTINE HISTORY: Bilateral anterior neck pain COMPARISON: Chest 08/03/2017. FINDINGS: The lungs are clear. Cardiac silhouette is normal in size. No pleural effusions. No pneumothorax. IMPRESSION: No acute process. Electronically signed by: Alexys Doty M.D. 11/02/2017 2:41 PM Dictated Date/Time: 11/02/2017 2:40 PM
--- NOTE | 2017-11-02 14:44 | DIAGNOSTIC IMAGING REPORT ---
SOFT TISSUE NECK CLINICAL HISTORY: Bilateral anterior neck pain COMPARISON STUDY: Cervical spine 12/08/2016. FINDINGS: Slight reversal of the normal lordotic curvature, unchanged. Prevertebral soft tissues and the epiglottis are normal in thickness. The contours of the hypopharynx are within normal limits. No soft tissue gas identified. No radiopaque foreign bodies. The trachea is midline and is patent. The lung apices are clear. IMPRESSION: Unremarkable neck radiograph. Electronically signed by: Alexys Doty M.D. 11/02/2017 2:43 PM Dictated Date/Time: 11/02/2017 2:41 PM
[2017-11-02 15:07] LABS: BASO % 0.6 %; BASO ABS # 0.05 K/uL (0-0.2); COMPLETE YES; EOS % 2.3 %; HEMATOCRIT 41.1 % (37-47); IG% 0.3 %; LYMPH % 24.1 %; LYMPH ABS # 2.14 K/uL (1.2-3.4); MEAN CELL VOLUME 94.1 fL (80-100); MEAN CORPUSCULAR HEMOGLOBIN 32.3 pg (25-34); MEAN CORPUSCULAR HGB CONC 34.3 g/dl (32-36); MEAN PLATELET VOLUME 10.2 fL (7.4-10.4); NEUT % 58.7 %; PLATELET COUNT 302 K/uL (130-400); RED BLOOD COUNT 4.37 M/uL (4.2-5.4); WHITE BLOOD COUNT 8.88 K/uL (4.8-10.8)
[2017-11-02 15:26] LABS: BUN/CREATININE RATIO 14.2 (10-20); CALCIUM 8.9 mg/dl (8.5-10.1); CREATININE 0.79 mg/dl (0.60-1.20); POTASSIUM 3.8 mmol/L (3.5-5.1)
[2017-11-02 15:29] LABS: ALB/GLOB RATIO 0.7 (0.9-2)
[2017-11-02] MEDS ORDERED: OPTIRAY 320 IV PRN (16:00)
--- NOTE | 2017-11-02 16:15 | DIAGNOSTIC IMAGING REPORT ---
CT NECK WITH INTRAVENOUS CONTRAST CLINICAL HISTORY: Bilateral anterior neck pain, fevers, markedly tender TECHNIQUE: Multiaxial CT images of the neck performed following the use of intravenous contrast. COMPARISON STUDY: Neck radiograph 11/02/2017. FINDINGS: The visualized brain parenchyma and orbits are unremarkable. Mucosal hyperenhancement within the nasopharynx, oropharynx, and bilateral palatine tonsils. The epiglottis and prevertebral soft tissues are normal in thickness. There is a 1.7 cm heterogeneous nodule within the lower pole of the left thyroid gland. This could be exophytic. The major cervical vessels enhance normally. No loculated fluid collections to suggest an abscess. The parotid and submandibular glands are symmetric. There is shotty bilateral submandibular and upper cervical lymphadenopathy. There is also 1.3 cm nodule within the upper pole the left thyroid lobe. The lung apices are clear. No fractures within the visualized osseous structures. The paranasal sinuses and mastoid air cells are clear. IMPRESSION: 1. Mucosal hyperenhancement within the nasopharynx, oropharynx, and palatine tonsils. This suggests a pharyngitis/tonsillitis. 2. No abscess or mass identified within the neck. 3. Mild upper cervical/submandibular shotty lymphadenopathy. This is likely reactive. 4. Left thyroid nodules as described above. Follow-up nonemergent thyroid ultrasound is recommended for further evaluation. Electronically signed by: Alexys Doty M.D. 11/02/2017 4:14 PM Dictated Date/Time: 11/02/2017 4:07 PM
[2017-11-02 16:37] VITALS: BP 125/86; PULSE 60; O2SAT 98
[2017-11-02] MEDS ORDERED: AZITHROMYCIN 250 MG TAB PO STA (16:45)
[2017-11-02] MEDS ORDERED: AZIT-60 PO (16:49)
== END 2017-11-02 16:58 | disposition home or self-care (01) ==
LOC: C.EDB 13:22
DX: J02.9 Acute pharyngitis, unspecified (principal); J45.909 Unspecified asthma, uncomplicated; E04.2 Nontoxic multinodular goiter; F17.200 Nicotine dependence, unspecified, uncomplicated; Z80.9 Family history of malignant neoplasm, unspecified; Z83.3 Family history of diabetes mellitus; Z83.79 Family history of other diseases of the digestive system; Z82.49 Family history of ischemic heart disease and other diseases of the circulatory system; Z84.1 Family history of disorders of kidney and ureter

== ENCOUNTER 2018-02-24 13:58 | Emergency (ER) | payer SELFPAY ==
[~2018-02-24] VITALS: Ht 170.2 cm; Wt 97.0 kg
[~2018-02-24 13:58] MED LIST changes: -METH750T PO; -PROP120C PO; -TOPI25TA99 PO; -VNTHFA/IN INH; -ZNTT/150 PO
[2018-02-24 14:01] VITALS: BP 146/87; TEMP 36.6; Ht 170.2 cm; Wt 97.0 kg
[2018-02-24] MEDS ORDERED: ONDA4TAB10 SL (15:13)
--- NOTE | 2018-02-24 15:14 | EMERGENCY ROOM VISIT NOTE ---
History Report prepared by Scribe: Kira Ramos Under the Supervision of: Dr. Michael Sue D.O. First contact with patient: 15:01 Chief Complaint: NAUSEA Stated Complaint: SICK IN STOMACH Nursing Triage Summary: pt here with nausea, diarrhea x 4 days. pt states also has scattered red rash sporatically in places. History of Present Illness The patient is a 32 year old female who presents to the Emergency Room with complaints of persistent nausea and vomiting for the past 4 days. Eating worsens her symptoms. She vomited twice earlier this morning and has also been coughing. She complains of diarrhea for the past few days as well and has had the chills. She has not checked her temperature. The patient states she also noticed a red rash sporadically located on her body earlier this morning. Source of History: patient Onset: 4 days CREDIT ASSOCIATE Position: abdomen Timing: other (persistent) Modifying Factors (Worsening): eating Associated Symptoms: + chills, + cough, + diarrhea, + rash, No fevers Review of Systems See HPI for pertinent positives & negatives. A total of 10 systems reviewed and were otherwise negative. Past Medical & Surgical Medical Problems: (1) Asthma, Unspecified (2) NONSPECIF SKIN ERUPT NEC (3) NONTOX UNINODULAR GOITER (4) Personal History, Pneumonia (Recurrent) (5) Tendon release, left wrist Family History Cancer Diabetes mellitus Gallbladder disease Heart disease Hypertension Kidney disease Kidney stones Lung disease Social History Smoking Status: Current Every Day Smoker Alcohol Use: none Drug Use: none Marital Status: single Housing Status: lives with family Occupation Status: employed Current/Historical Medications Scheduled Magnesium Oxide (Mg Supplement (Magnesium Oxide), 250 MG PO DAILY Ondasetron Odt (Zofran Odt), 4 MG SL Q6H Propranolol Hcl (Propranolol Hcl Er), 120 MG PO DAILY Ranitidine (Zantac), 300 MG PO BID Topiramate (Topamax ), 25 MG PO QAM Topiramate (Topiramate), 50 MG PO QAM Scheduled PRN Epinephrine (Epipen), 0.3 MG IM UD PRN for ALLERGIC REACTION Methocarbamol (Robaxin), 750 MG PO BID PRN for Muscle Spasm Allergies Coded Allergies: Cephalosporins (Verified Allergy, Intermediate, HIVES FROM ROCEPHIN IM, ) Ibuprofen (Verified Allergy, Intermediate, HIVES, 11/02/17) Lidocaine (Verified Allergy, Intermediate, HIVES FROM LIDOCAINE IM, ) Tramadol (Verified Allergy, Intermediate, RASH, 11/02/17) Adhesives (Verified Allergy, Mild, RASH, 11/02/17) Loratadine (Verified Allergy, Mild, 11/02/17) Naproxen (Verified Allergy, Mild, 11/02/17) Propoxyphene (Verified Allergy, Mild, RASH, BUT TAKES DARVON, 11/02/17) Hydrocodone (Verified Allergy, Unknown, ., 11/02/17) Prednisone (Verified Allergy, Unknown, FACIAL SWELLING, 11/02/17) Sulfa Drugs (Verified Allergy, Unknown, ., 11/02/17) Sulfamethoxazole (Verified Allergy, Unknown, ., 11/02/17) Trimethoprim (Verified Allergy, Unknown, ., 11/02/17) Physical Exam Vital Signs Date Time Temp Pulse Resp B/P (MAP) Pulse Ox O2 Delivery O2 Flow Rate FiO2 02/24/18 15:50 71 97 02/24/18 14:01 36.6 63 16 146/87 98 Room Air Physical Exam CONSTITUTIONAL/VITAL SIGNS: Reviewed / noted above. GENERAL: Non-toxic in appearance. INTEGUMENTARY: Warm, dry, and [place]. HEAD: Normocephalic. EYES: without scleral icterus or trauma. ENT/OROPHARYNX: clear and moist. LYMPHADENOPATHY/NECK: Is supple without lymphadenopathy or meningismus. RESPIRATORY: Lungs clear and equal. CARDIOVASCULAR: Regular rate and rhythm. GI/ABDOMEN: Soft and nontender. No organomegaly or pulsatile mass. No rebound or guarding. Normal bowel sounds. EXTREMITIES: Warm and well perfused. BACK: No CVA tenderness. NEUROLOGICAL: Intact without focal deficits. PSYCHIATRIC: normal affect. MUSCULOSKELETAL: Normally developed with good muscle tone. Medical Decision & Procedures ED Course 1504: Previous medical records were reviewed. The patient was evaluated in room A2. A complete history and physical examination was performed. Medical Decision Differential includes viral syndrome, bowel obstruction, infection, electrolyte disturbance. This is a 32-year-old female who presents to the ED with a chief complaint of vomiting and diarrhea. The patient states that her symptoms started on mostly with nausea and diarrhea. She had a couple of episodes of vomiting since that time. She is currently feeling nauseated and had to take off work. She states that her mother also is starting to get the same symptoms. Her exam was unremarkable. She has been able to tolerate some fluids despite being nauseated. Mucous membranes are moist. Abdomen is soft and nontender. She was discharged with Zofran. Work excuse provided. Medication Reconcilliation Current Medication List: was personally reviewed by me Blood Pressure Screening Patient's blood pressure: Elevated blood pressure Blood pressure disposition: Elevated BP felt to be situational Impression Primary Impression: Nausea vomiting and diarrhea Scribe Attestation The scribe's documentation has been prepared under my direction and personally reviewed by me in its entirety. I confirm that the note above accurately reflects all work, treatment, procedures, and medical decision making performed by me. Departure Information Dispostion Home / Self-Care Prescriptions Ondasetron Odt (ZOFRAN ODT) 4 Mg Tab 4 MG SL Q6H for Nausea, #30 TAB Prov: Michael Sue D.O. 02/24/18 Referrals No Doctor, Assigned (PCP) Patient Instructions ED Diet Vomiting Diarrhea, My [facility] Additional Instructions Zofran: Allow one tablet to dissolve under the tongue every 6 hours as needed for nausea or vomiting. Follow-up with your doctor for further care and evaluation in 1-2 days if symptoms persist. Return to the emergency department for worsening or new symptoms or any concerns. You have been examined and treated today on an emergency basis only. This is not a substitute for, or an effort to provide, complete comprehensive medical care. It is impossible to recognize and treat all injuries or illnesses in a single emergency department visit. It is therefore important that you follow up closely with your doctor. Call as soon as possible for an appointment. Work Instructions Return To Work: 3 days
[2018-02-24] MEDS ORDERED: MAGN250T16 PO (15:36)
[2018-02-24] MEDS ORDERED: TPM25 PO (15:36)
[2018-02-24 15:50] VITALS: PULSE 71; O2SAT 97
[2018-02-24] MEDS ORDERED: PROP120C PO (20:29)
[2018-02-24] MEDS ORDERED: METH750T PO (20:39)
[2018-02-24] MEDS ORDERED: RANI150T85 PO (20:59)
[2018-02-24] MEDS ORDERED: TOPI25TA99 PO (21:38)
== END 2018-02-24 15:51 | disposition home or self-care (01) ==
LOC: C.EDB 13:59 → C.EDA 15:51
DX: R11.2 Nausea with vomiting, unspecified (principal); R19.7 Diarrhea, unspecified; R21 Rash and other nonspecific skin eruption; R68.83 Chills (without fever); R05 Cough; Z87.01 Personal history of pneumonia (recurrent); F17.210 Nicotine dependence, cigarettes, uncomplicated; Z79.899 Other long term (current) drug therapy; Z91.048 Other nonmedicinal substance allergy status; Z88.8 Allergy status to other drugs, medicaments and biological substances

== ENCOUNTER 2018-03-10 14:54 | Emergency (ER) | payer OTHER ==
[~2018-03-10] VITALS: Ht 170.2 cm; Wt 97.0 kg
[~2018-03-10 14:54] MED LIST changes: +MAGN250T16 PO; -MAGN400T6 PO; +METH750T PO; +ONDA4TAB10 SL; +PROP120C PO; +RANI150T85 PO; +TOPI25TA99 PO; -TOPI50TA16 PO; +TPM25 PO
[2018-03-10 15:03] VITALS: TEMP 36.6; Ht 170.2 cm; Wt 97.0 kg
[2018-03-10] MEDS ORDERED: ALBUTEROL HFA 8 GM INHALER INH STA (15:16)
[2018-03-10] MEDS ORDERED: ALBUT/IPRATROP 3MG/0.5MG NEB 3 ML VIAL INH STA (15:16)
--- NOTE | 2018-03-10 15:46 | DIAGNOSTIC IMAGING REPORT ---
CHEST 2 VIEWS ROUTINE CLINICAL HISTORY: 32 years-old Female presenting with cough, URI. TECHNIQUE: PA and lateral views of the chest were obtained. COMPARISON: 11/02/2017. FINDINGS: Cardiomediastinal silhouette normal. Lungs and pleural spaces clear. Osseous structures normal. Cholecystectomy clips noted. IMPRESSION: 1. No acute cardiopulmonary disease. Electronically signed by: Dakota Riddle M.D. 03/10/2018 3:44 PM Dictated Date/Time: 03/10/2018 3:43 PM
--- NOTE | 2018-03-10 16:20 | EMERGENCY ROOM VISIT NOTE ---
History First contact with patient: 15:09 Chief Complaint: COUGH Stated Complaint: COUGHING Nursing Triage Summary: patient c/o productive cough since History of Present Illness The patient is a 32 year old female who presents to the Emergency Room with complaints of cold and cough since Saturday. The patient reports that she developed a stuffy nose first, then started to develop a significant productive cough Saturday evening. She reports that the coughing is getting worse. She reports chills, but has not checked her temperature. The patient reports that she just recently finished Flagyl for a C. difficile infection. She took the Flagyl for 10 days. She called the [facility] today, and was instructed to come to the emergency department for further reevaluation. The patient denies history of asthma. Review of Systems 10 system review was performed and was negative except for pertinent positives and negatives as indicated in history of present illness Past Medical/Surgical History Medical Problems: (1) Asthma, Unspecified (2) NONSPECIF SKIN ERUPT NEC (3) NONTOX UNINODULAR GOITER (4) Personal History, Pneumonia (Recurrent) (5) Tendon release, left wrist Family History Cancer Diabetes mellitus Gallbladder disease Heart disease Hypertension Kidney disease Kidney stones Lung disease Social History Smoking Status: Current Every Day Smoker Alcohol Use: none Drug Use: none Marital Status: single Housing Status: lives with family Occupation Status: employed Current/Historical Medications Scheduled Magnesium Oxide (Mg Supplement (Magnesium Oxide), 250 MG PO DAILY Ondasetron Odt (Zofran Odt), 4 MG SL Q6H Propranolol Hcl (Propranolol Hcl Er), 120 MG PO DAILY Ranitidine (Zantac), 300 MG PO BID Topiramate (Topamax ), 25 MG PO QAM Topiramate (Topiramate), 50 MG PO QAM Scheduled PRN Epinephrine (Epipen), 0.3 MG IM UD PRN for ALLERGIC REACTION Methocarbamol (Robaxin), 750 MG PO BID PRN for Muscle Spasm Physical Exam Vital Signs Date Time Temp Pulse Resp B/P (MAP) Pulse Ox O2 Delivery O2 Flow Rate FiO2 03/10/18 15:03 36.6 67 20 133/83 97 Room Air Physical Exam CONSTITUTIONAL: Healthy and well nourished. Alert and oriented X 3 with positive affect. Patient has a nonproductive cough. HEENT: Normocephalic, atraumatic. Pupils equal, round and reactive. Ears and nares are clear. No scleral icterus or conjunctival injection. NECK: Full active range of motion without discomfort. RESPIRATORY: Clear to auscultation bilaterally with no wheezing, crackles, rhonchi or stridor. CARDIOVASCULAR: Regular rate and rhythm with no murmurs, rubs or gallops. GASTROINTESTINAL: Bowel sounds present in all quadrants. MUSCULOSKELETAL: Full range of motion of all joints without discomfort. INTEGUMENTARY: No rash or other significant dermatologic conditions noted. NEUROLOGIC: No focal neurologic deficits noted. Medical Decision & Procedures ER Provider Diagnostic Interpretation: My interpretation of a two-view chest x-ray does not show any consolidations or pneumothorax. Radiologist report is as follows: CHEST 2 VIEWS ROUTINE CLINICAL HISTORY: 32 years-old Female presenting with cough, URI. TECHNIQUE: PA and lateral views of the chest were obtained. COMPARISON: 11/02/2017. FINDINGS: Cardiomediastinal silhouette normal. Lungs and pleural spaces clear. Osseous structures normal. Cholecystectomy clips noted. IMPRESSION: 1. No acute cardiopulmonary disease. Medications Administered Medications (Trade) Dose Ordered Sig/Kimmie Route Start Time Stop Time Status Last Admin Dose Admin Albuterol/ Ipratropium (Duoneb) 3 ml NOW STAT INH 03/10/18 15:16 03/10/18 15:18 DC 03/10/18 15:23 3 ML Albuterol (Ventolin Hfa Inhaler) 2 puffs ONE STAT INH 03/10/18 15:16 03/10/18 15:18 DC 03/10/18 15:23 2 PUFFS ED Course Patient history and physical exam were performed. Nurse's notes were reviewed. Vital signs were reviewed and were normal. A unit dose DuoNeb treatment was provided with good relief of the patient's cough. A two-view chest x-ray was normal. Because the patient recently had C. difficile, I recommended not providing any antibiotic treatment at this time. I explained that with symptoms ongoing for only 3 days that this is likely a viral upper respiratory infection. The patient was dispensed an albuterol metered-dose inhaler with instructions for use. She was instructed to follow-up with her PCP for recheck in 3-5 days, sooner with any worsening symptoms. The patient was happy with plan of care, and voiced understanding of all discharge instructions. Medical Decision Medication Reconcilliation Current Medication List: was personally reviewed by me Blood Pressure Screening Patient's blood pressure: Normal blood pressure Impression Primary Impression: Viral URI with cough Departure Information [facility] Patient Instructions [facility]
[2018-03-10 16:37] VITALS: BP 126/82; PULSE 76; O2SAT 98
== END 2018-03-10 16:35 | disposition home or self-care (01) ==
LOC: C.EDB 14:55 → C.EDD 16:35
DX: J06.9 Acute upper respiratory infection, unspecified (principal); J45.909 Unspecified asthma, uncomplicated; Z87.01 Personal history of pneumonia (recurrent); E04.1 Nontoxic single thyroid nodule; Z80.9 Family history of malignant neoplasm, unspecified; Z83.3 Family history of diabetes mellitus; Z82.49 Family history of ischemic heart disease and other diseases of the circulatory system; Z84.1 Family history of disorders of kidney and ureter; F17.210 Nicotine dependence, cigarettes, uncomplicated; Z79.899 Other long term (current) drug therapy